=== PATIENT | female | born 1970 | race Caucasian/White ===

== ENCOUNTER 2016-10-21 11:23 | Emergency (ER) | payer OTHER ==
[~2016-10-21] VITALS: Ht 167.6 cm; Wt 77.1 kg
[~2016-10-21 11:23] MED LIST: ATIVAN0.5 M1 PO; ATIVAN1 M1 PO; AUGMENTIN 875875 MG PO; BACLOFEN10 M1 PO; BACLOFEN20 M1 PO; BACTRIM DS 8001 TAB PO; BACTRIM DS TAB1 EACH PO; BENADRYL ALLERG25 M1 PO; BENADRYL25 MG PO; BENTYL20 M1 PO; BENTYL20 MG PO; CARAFATE1 G1 PO; CIPRO 500MG TA500 MG PO; COMPAZINE10 M1 PO; DICYCLOMINE HCL20 M1 PO; DICYCLOMINE HYD20 MG PO; DILAUDID2 MG PO; DONNATAL TABS1 TAB PO; FAMOTIDINE20 MG PO; FLAG500 PO; FLEXERIL10 MG PO; HYDROXYZINE HCL25 M2 PO; HYDROXYZINE50 MG PO; IMITREX50 M1 PO; IMITREX50 MG PO; IMODIUM2 MG PO; KEFLEX500 MG PO; LEVSIN/SL0.125 MG PO; LEVSIN0.125 M1 PO; LEVSIN0.125 MG PO; METHADONE HCL10 M1 PO; METHOCARBAMOL500 MG PO; MOBIC15 MG PO; NAPROXEN500 MG PO; ONDANSETRON4 MG PO; OXYCODONE-ACET1 EACH PO; OXYCODONE5 M1 PO; PANTOPRAZOLE SO40 M1 PO; PEPCID40 MG PO; PERCOCET 325 MG1 TA2 PO; PERCOCET 5-3251 EACH PO; PROTONIX 40MG T40 MG PO; REGLAN10 M1 PO; REGLAN10 MG PO; TORADOL10 MG PO; TRAZODONE HCL50 M1 PO; TRAZODONE50 MG PO; VICODIN 300 MG-1 TAB PO; VICODIN 500 MG-1 TAB PO; XANAX1 MG PO; ZOFRAN ODT4 M1 PO; ZOFRAN4 M1 SL
[2016-10-21 11:30] VITALS: BP 120/75
--- NOTE | 2016-10-21 11:59 | ED HAND/WRIST INJURY COMPLAINT ---
History of Present Illness General Chief Complaint: Hand or Wrist Injury Stated Complaint: R WRIST INJURY MOVING BOXES Source: patient, old records Exam Limitations: no limitations Vital Signs & Intake/Output Vital Signs & Intake/Output Vital Signs Date Time Temp Pulse Resp B/P Pulse O2 O2 Flow FiO2 Ox Delivery Rate 10/21 1211 Room Air Room Air 10/21 1130 97.4 98 20 120/75 98 Room Air ED Intake and Output 10/22 0000 10/21 1200 Intake Total 0 Output Total Balance 0 Intake, Oral 0 Patient 170 lb Weight Allergies Coded Allergies: sodium hypochlorite solution (SODIUM HYPOCHLORITE) (Severe, RASH, BURNING ) NSAIDS (Non-Steroidal Anti-Inflamma (ABD PAIN 10/09/16) cyclobutyrol (PT REPORTS FROM LOWER BACK PAIN DOWN CONSTANT PAINFUL ACHE ) meloxicam (ABD PAIN 10/09/16) tramadol (Severe, VOMITING 10/09/16) ibuprofen (Mild, GI UPSET 10/09/16) Reconcile Medications Dicyclomine HCl 20 MG TABLET 1 TAB PO TID ABD PAIN (Reported) Ketorolac Tromethamine 10 MG TABLET 1 TAB PO Q6P PRN PAIN Ondansetron (Zofran Odt) 4 MG TAB.RAPDIS 1 TAB PO TID PRN NAUSEA Pantoprazole Sodium (Protonix) 40 MG TAB 1 TAB PO DAILY GERD Sumatriptan Succinate (Imitrex) 50 MG TAB 1 TAB PO AD PRN MIGRAINES (Reported ) Triage Note: PT STATES SHE WAS PACKING BOXES AND ONE OF THEM FELL ONTO RIGHT HAND INJURING IT. STATES IT HAPPENED LAST NIGHT Triage Nurses Notes Reviewed? yes Occurred: yesterday Duration: day(s): (2), constant Timing: recent history Injury Environment: home Severity: moderate Severity Numbers: 6 Pain/Injury Location: Right: Wrist. Context: blow Method of Injury: direct blow No Modifying Factors: none Associated Symptoms: none HPI: 46-year-old female presents to emergency room complaining of right wrist pain that radiates into her hand since last night. She states she was packing boxes on the box that was full of her dishes fell on her wrist causing it to stretch backwards. She states since then she's had constant aching pain worse with palpation and range of motion. She denies any other injury. She is right-hand dominant. Patient has a history of chronic right hand and wrist pain for which she has been seen by hand surgeon Dr. weiss and is scheduled to have surgery however states that he'll not do the surgery until she is in pain management. There is no other injury no forearm or elbow or shoulder pain (RAGINI DUPREE) Past History Travel History Traveled to [place] past 21 day No Medical History Any Pertinent Medical History? see below for history Neurological: NONE EENT: NONE Cardiovascular: NONE Respiratory: pneumonia, COLLAPSED LUNG Gastrointestinal: pancreatitis, peptic ulcer disease, upper GI bleed Hepatic: NONE Renal: UTI Musculoskeletal: fracture, TAILBONE AND THUMB FX Psychiatric: anxiety, insomnia Endocrine: NONE Blood Disorders: NONE Cancer(s): NONE SHAREHOLDER/Reproductive: NONE Surgical History Surgical History: tubal ligation, DUODENAL ULCER REPAIR (EX LAP) tonsillectomy, ovarian cystectomy Psychosocial History Who do you live with Mother Services at Home None What is your primary language Belarusian Tobacco Use: Current Daily Use Daily Tobacco Use Amount/Type: => 5 Cigarettes daily ETOH Use: occasional use Illicit Drug Use: denies illicit drug use Family History Hx Contributory? No (RAGINI DUPREE) Review of Systems Review of Systems Constitutional: Reports: see HPI. All Other Systems: Reviewed and Negative Comments Review of systems: See HPI, All other systems negative. Constitutional, no chills no fever, no malaise HEENT: No visual changes no sore throat no congestion, Cardiovascular: No chest pain , no palpitation Skin, no rashes, no change in skin Respiratory: No dyspnea no cough no sputum GI: No nausea no vomiting, : No dysuria Muscle skeletal: joint pain, no joint swelling, no back pain, no neck pain, Neurologic: No numbness n no headache Psych: No stress n Heme/endocrine: No bruising no bleeding Immunology: No lymphadenopathy (RAGINI DUPREE) Physical Exam Physical Exam General Appearance: well developed/nourished, no apparent distress, alert, awake Hand Left: normal inspection, normal range of motion Hand Right: normal inspection, normal range of motion Comments: Well-developed well-nourished patient in no apparent distress. HEENT: Atraumatic, extraocular motion intact Neck: Supple, FROM Back: FROM Cardiovascular: Regular rate and rhythms no murmurs Respiratory: No respiratory distress. Patient speaking in full complete sentences. Breath sounds clear to auscultation bilaterally: NO W/R/R Shoulder: Atraumatic/Stable. FROM . Elbow: Atraumatic/stable. FROM. No laxity Upper arm/Forearm: Atraumatic. Nontender. 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 Skin intact. FROM no scaphoid tenderness no obvious deformity no ecchymosis no swelling Pulses: Normal/equal radial pulses bilaterally. Brisk cap refill LOWER Extremities: full range of motion Neuro: Alert and oriented x3 Skin: Warm & dry;No appreciable rash on exposed skin Psych: Mood affect normal, normal memory normal judgment. (RAGINI DUPREE) Progress Differential Diagnosis: compartment syndrome, dislocation, fracture, sprain Plan of Care: Current Medications Sig/Annemarie Start time Last Medication Dose Stop Time Status Admin Ketorolac 30 MG ONCE ONE 10/21 1230 UNVr Tromethamine 10/21 1231 (Toradol) X-ray was ordered from triage I discussed the patient her x-ray results. The patient is been seen numerous times in the past for various pain ailments including similar symptoms today requesting her chronic pain medication. She has multiple allergies to over-the- counter pain medication I discussed with her that I cannot write her any narcotic she is requesting a shot of Toradol. Discussed with her that this was listed as an allergy which she states she has taken before without any problem. Gregorio wrap was applied to the right wrist by me advised to follow up with her hand specialist return anytime sooner with any concerns (RAGINI DUPREE) Diagnostic Imaging: Viewed by Me: Radiology Read. Discussed w/RAD: Radiology Read. Radiology Impression: PATIENT: VANDANA ZABALA PRESENT AGE: 46 PATIENT ACCOUNT NO: [id number] : 68 LOCATION: [facility] ORDERING PHYSICIAN: RAGINI MOLINA SERVICE DATE: 10/21/16 EXAM TYPE: RAD - XRY-WRIST COMPLETE-RIGHT EXAMINATION: XR WRIST, RIGHT CLINICAL INFORMATION : Pain after trauma. Evaluate for fracture. COMPARISON: None. TECHNIQUE: Right wrist, 3 views FINDINGS: There is osteoarthritis of the first carpometacarpal joint as manifest by nonuniform joint space loss, subarticular sclerosis, subarticular cystic change and osteophyte formation. There is a 0.3 cm ossicle at the lateral aspect of the degenerated joint. There is no evidence of acute carpal bone fracture or carpal subluxation. The radiocarpal and midcarpal joint spaces are well-preserved. No focal soft tissue swelling. IMPRESSION: 1. No acute fracture or malalignment at the right wrist. 2. [id number] osteoarthritis of the first carpometacarpal joint. DICTATED BY: MICHAELLE WHITMORE MD DATE/TIME DICTATED:10/21/161206 FURNITURE REFINISHER:LACHELLE DATE/TIME TRANSCRIBED:10/21/161206 CONFIDENTIAL, DO NOT COPY WITHOUT APPROPRIATE AUTHORIZATION. <Electronically signed in Other Vendor System> SIGNED BY: MICHAELLE WHITMORE MD 10/21/16 1213 (RAGINI DUPREE) Departure Departure Time of Disposition: 1223 Disposition: HOME OR SELF CARE Condition: Stable Clinical Impression Primary Impression: Wrist sprain Referrals: AMADOU ANGULO (PCP/Family) Additional Instructions: follow up iwth your hand surgeon and pain management dr mistry. toradol as needed for pain. This was sent to [facility]. gregorio as discussed. Departure Forms: Customer Survey General Discharge Information Prescriptions: Current Visit Scripts Ketorolac Tromethamine 1 TAB PO Q6P PRN PAIN #20 TAB (RAGINI DUPREE) PA/PHOTOGRAPHIC TECHNICIAN Co-Sign Statement Statement: ED Attending supervision documentation- [] I saw and evaluated the patient. I have also reviewed all the pertinent lab results and diagnostic results. I agree with the findings and the plan of care as documented in the PA's/PHOTOGRAPHIC TECHNICIAN's documentation. [X] I have reviewed the ED Record and agree with the PA's/PHOTOGRAPHIC TECHNICIAN's documentation. [] Additions or exceptions (if any) to the PAs/PHOTOGRAPHIC TECHNICIAN's note and plan are summarized below: [] (ALAN CUEVAS,JOSUÉ)
--- NOTE | 2016-10-21 12:13 | RADIOLOGY REPORT ---
EXAMINATION: XR WRIST, RIGHT CLINICAL INFORMATION: Pain after trauma. Evaluate for fracture. COMPARISON: None. TECHNIQUE: Right wrist, 3 views FINDINGS: There is osteoarthritis of the first carpometacarpal joint as manifest by nonuniform joint space loss, subarticular sclerosis, subarticular cystic change and osteophyte formation. There is a 0.3 cm ossicle at the lateral aspect of the degenerated joint. There is no evidence of acute carpal bone fracture or carpal subluxation. The radiocarpal and midcarpal joint spaces are well-preserved. No focal soft tissue swelling. IMPRESSION: 1. No acute fracture or malalignment at the right wrist. 2. [id number]-[id number] osteoarthritis of the first carpometacarpal joint.
[2016-10-21] MEDS ORDERED: KETOROLAC TROME10 M1 PO (12:27)
== END 2016-10-21 12:55 ==
LOC: ERH 11:23
DX: S63.501A Unspecified sprain of right wrist, initial encounter (principal); W20.8XXA Other cause of strike by thrown, projected or falling object, initial encounter
CPT/HCPCS: 73110-RT; 96372; J1885

== ENCOUNTER 2016-11-05 15:06 | Emergency (ER) | payer OTHER ==
[~2016-11-05] VITALS: Ht 167.6 cm; Wt 74.8 kg
[~2016-11-05 15:06] MED LIST changes: +KETOROLAC TROME10 M1 PO
[2016-11-05 15:54] LABS: ABSOLUTE BASOPHIL COUNT 0 /CUMM (0.0-0.2); ABSOLUTE EOSINOPHIL COUNT 0.2 /CUMM (0.0-0.7); ABSOLUTE GRANULOCYTE CT 4.6 /CUMM (1.4-6.5); ABSOLUTE LYMPH COUNT 3.1 /CUMM (1.2-3.4); ABSOLUTE MONOCYTE COUNT 0.4 /CUMM (0.10-0.60); BASOPHIL % 0.4 % (0.0-2.0); EOSINOPHIL % 2.3 % (0-5); GRANULOCYTE % 55.4 % (42.2-75.2); HEMATOCRIT 43.3 % (37-47); MEAN CORPUSCULAR HGB 32.4 PG (27.0-31.0); MEAN CORPUSCULAR HGB CONC 34.5 G/DL (33.0-37.0); MEAN CORPUSCULAR VOLUME 93.8 FL (81.0-99.0); MEAN PLATELET VOLUME 7.9 FL (7.4-10.4); PLATELET COUNT 294 /CUMM (130-400); RBC DISTRIBUTION WIDTH 15.3 % (11.5-14.5); RED BLOOD CELL CT 4.61 /CUMM (4.20-5.40); WHITE BLOOD CELL COUNT 8.4 /CUMM (4.8-10.8)
--- NOTE | 2016-11-05 17:52 | ED GI/GU/ABDOMINAL COMPLAINT ---
History of Present Illness General Chief Complaint: Abdominal Pain/Flank Pain Stated Complaint: ABD PAIN X3 DAYS Source: patient Exam Limitations: no limitations Vital Signs & Intake/Output Vital Signs & Intake/Output Vital Signs Date Time Temp Pulse Resp B/P Pulse O2 O2 Flow FiO2 Ox Delivery Rate 11/05 2020 98.4 104 18 151/77 98 Room Air 11/05 1908 98.1 96 20 109/66 98 Room Air 11/05 1708 97.4 93 18 139/79 100 Room Air 11/05 1517 97.0 99 18 121/85 100 Room Air Allergies Coded Allergies: sodium hypochlorite solution (SODIUM HYPOCHLORITE) (Severe, RASH, BURNING ) Iodinated Contrast Media - Oral and (Intermediate, PRURITIS 11/05/16) ITCHING, REDNESS/FLUSHING, TACHYCARDIA AND NAUSEA 11/05/16 NSAIDS (Non-Steroidal Anti-Inflamma (ABD PAIN 10/09/16) cyclobutyrol (PT REPORTS FROM LOWER BACK PAIN DOWN CONSTANT PAINFUL ACHE ) meloxicam (ABD PAIN 10/09/16) tramadol (Severe, VOMITING 10/09/16) ibuprofen (Mild, GI UPSET 10/09/16) Reconcile Medications Dicyclomine HCl 20 MG TABLET 1 TAB PO TID ABD PAIN (Reported) Ketorolac Tromethamine 10 MG TABLET 1 TAB PO Q6P PRN PAIN Ondansetron (Zofran Odt) 4 MG TAB.RAPDIS 1 TAB PO TID PRN NAUSEA Oxycodone HCl/Acetaminophen (Percocet 5-325 MG Tablet) 5 MG-325 MG TABLET 1-2 TAB PO Q6P PRN pain Pantoprazole Sodium (Protonix) 40 MG TAB 1 TAB PO DAILY GERD Sumatriptan Succinate (Imitrex) 50 MG TAB 1 TAB PO AD PRN MIGRAINES (Reported ) Triage Note: 46 Y/O FEMALE C/O DIFFUSE ABDOMINAL PAIN SINCE WEDNESDAY MORNING; STATES SHE WOKE WITH PAIN AND HAS BEEN CONSTANT SINCE ONSET DESPITE TAKING PRESCRIBED MEDS (ZOFRAN, CARAFATE AND BENTYL). PT CALLED HER GI DOCTOR AND STATES HAS APPT FOR WEDNESDAY. C/O N/V/D. AFEBRILE. Triage Nurses Notes Reviewed? yes ? N Is pt currently ? No Onset: Abrupt Duration: day(s): (3), constant, continues in ED Timing: recent history Quality/Severity: sharpness Location: generalized abdomen Radiation: no radiation Activities at Onset: none No Modifying Factors: none HPI: 46-year-old female comes into emergency room with complaints of generalized abdominal pain has been going on for the past 3 days. History of previous ulcer. Denies any fever chills vomiting. Denies any back pain chest pain. Patient reports that she's had surgery on her ulcer previously. Patient reports that she had blood in her stool 3 days ago but denies any blood currently. (GILMER MONTANEZ) Past History Travel History Traveled to [place] past 21 day No Medical History Any Pertinent Medical History? 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 No (GILMER MONTANEZ) Review of Systems Review of Systems Constitutional: Reports: no symptoms. EENTM: Reports: no symptoms. Respiratory: Reports: no symptoms. Cardiovascular: Reports: no symptoms. GI: Reports: see HPI. Genitourinary: Reports: no symptoms. Musculoskeletal: Reports: no symptoms. Skin: Reports: no symptoms. Neurological/Psychological: Reports: no symptoms. Hematologic/Endocrine: Reports: no symptoms. Immunologic/Allergic: Reports: no symptoms. All Other Systems: Reviewed and Negative (GILMER MONTANEZ) Physical Exam Physical Exam General Appearance: well developed/nourished, alert, awake Head: atraumatic, normal appearance Eyes: Bilateral: normal appearance, EOMI. Ears, Nose, Throat, Mouth: hearing grossly normal, moist mucous membrane Neck: normal inspection Respiratory: normal breath sounds, no respiratory distress Cardiovascular: regular rate/rhythm Gastrointestinal: normal bowel sounds, soft Rectal: heme negative stool, brown stool Back: normal inspection Extremities: normal range of motion Neurologic/Psych: awake, alert, oriented x 3, normal gait, normal mood/affect Skin: intact, normal color Core Measures ACS in differential dx? No Severe Sepsis Present: No Septic Shock Present: No (GILMER MONTANEZ) Progress Differential Diagnosis: AMI, appendicitis, biliary colic, bowel obstruction, diverticulitis, endometritis, esophageal varices, gastritis, hepatitis, ischemic bowel, inflamm bowel dis, intrauterine , kidney stone, ovarian cyst, ovarian torsion, pancreatitis, PID/cervicitis, peptic ulcer, PUD/GERD, SBO, threatened AB, UTI/pyelo Plan of Care: Orders Procedure Date/time Status LACTIC ACID 11/05 1820 Complete URINALYSIS 11/05 1520 Complete LIPASE 11/05 1520 Complete LACTIC ACID 11/05 1520 Complete COMPREHENSIVE METABOLIC PANEL 11/05 1520 Complete CBC WITHOUT DIFFERENTIAL 11/05 1520 Complete AMYLASE 11/05 1520 Complete Laboratory Tests 11/05/16 1745: Lactic Acid 2.1 11/05/16 1711: Urine Color YEL, Urine Clarity CLEAR, Urine pH 7.0, Ur Specific Reddick <= 1.005 , Urine Protein NEG, Urine Ketones NEG, Urine Nitrite NEG, Urine Bilirubin NEG, Urine Urobilinogen 0.2, Ur Leukocyte Esterase NEG, Ur Microscopic EXAM NOT REQUIRED, Urine Hemoglobin NEG, Urine Glucose NEG 11/05/16 1547: Anion Gap 12, Estimated GFR > 60, BUN/Creatinine Ratio 12.5, Glucose 77, Lactic Acid 1.5, Calcium 9.9, Total Bilirubin 0.5, AST 15, ALT 24, Alkaline Phosphatase 94, Total Protein 7.4, Albumin 4.5, Globulin 2.9, Albumin/Globulin Ratio 1.6, Amylase 57, Lipase 34, CBC w Diff NO MAN DIFF REQ, RBC 4.61, MCV 93.8, MCH 32.4 H, RDW 15.3 H, MPV 7.9, Gran % 55.4, Lymphocytes % 37.1, Monocytes % 4.8, Eosinophils % 2.3, Basophils % 0.4, Absolute Granulocytes 4.6, Absolute Lymphocytes 3.1, Absolute Monocytes 0.4, Absolute Eosinophils 0.2, Absolute Basophils 0, PUBS MCHC 34.5 Diagnostic Imaging: Viewed by Me: CT Scan. Discussed w/RAD: CT Scan. Radiology Impression: EXAM TYPE: CAT - CT ABD & PELVIS W IV CONTRAST EXAMINATION : CT ABDOMEN AND PELVIS WITH CONTRAST CLINICAL INFORMATION: Abdominal pain. History of ulcer COMPARISON: 09/26/2016 and earlier TECHNIQUE: Multidetector volumetric imaging was performed from the lung bases through the pubic symphysis following the uneventful administration of: Oral contrast: No Intravenous contrast: 95 cc Optiray 320 Sagittal and coronal reformatted images were obtained on the technologist workstation. FINDINGS: LUNG BASES: The visualized lung bases are unremarkable. LIVER, GALLBLADDER, AND BILIARY TREE: The liver is normal in size, shape, and attenuation. No focal hepatic lesion or biliary ductal dilatation is present. The gallbladder is unremarkable with no evidence of radiopaque gallstones, gallbladder wall thickening, or obvious pericholecystic inflammatory changes. PANCREAS: Normal; no mass or surrounding fluid. SPLEEN: Unchanged nonspecific low density in the splenic hilum. No other focal liver lesion seen. ADRENAL GLANDS: Normal; no mass. KIDNEYS AND URETERS: The kidneys are normal in size, shape, and attenuation. No hydronephrosis, hydroureter, or calculi. GASTROINTESTINAL TRACT: Stomach and small bowel are nondilated. There is fatty deposition within the wall of the right colon, transverse colon, and to a lesser degree the left colon which can be seen as chronic sequelae of inflammation. No acute pathologic colonic wall thickening or pericolonic inflammatory changes seen. No evidence of colitis or diverticulitis. Normal appendix. Surgical clips are seen adjacent the stomach. ABDOMINAL WALL: Several midline periumbilical hernias are seen, superior and inferior to the umbilicus, in the midline, containing only fat. LYMPHOVASCULAR STRUCTURES: Normal caliber abdominal aorta. Mild calcified atherosclerotic changes. No lymphadenopathy. BLADDER: No focal mass or wall thickening seen. No bladder calculi. PELVIC VISCERA: Uterus normal. No adnexal mass. OSSEOUS STRUCTURES: No acute or suspicious osseous abnormality. There is transitional lumbosacral anatomy with a pseudoarthrosis on the right. IMPRESSION: No acute CT findings to explain the patient's abdominal pain. DICTATED BY: USMAN VALENTINE MD DATE/TIME DICTATED:11/05/161833 TAKE UP SUPERVISOR:LACHELLE DATE/TIME TRANSCRIBED:1833 CONFIDENTIAL, DO NOT COPY WITHOUT APPROPRIATE AUTHORIZATION. Initial ED EKG: none Comments: 11/05/2016 10:20:15 PM Nontoxic-appearing. In no apparent distress. Patient feels better after pain medications. No evidence of perforated ulcer. Patient is to follow-up with her GI doctor. Return to emergency room immediately if any other concerns worsening symptoms. Patient understands and agrees with plan of care. (GILMER MONTANEZ) Departure Departure Disposition: HOME OR SELF CARE Condition: Stable Clinical Impression Primary Impression: Abdominal pain Secondary Impressions: Allergic reaction Referrals: PATIENT HAS NO PRIMARY CARE DR (PCP/Family) Additional Instructions: Take Percocet as prescribed. Follow-up with your GI doctor. Return to the emergency room immediately if any other concerns worsening symptoms. Please go over all results of today's visit with your primary care doctor. Contact your primary care doctor to let them know you were here in the emergency room. There may be nonspecific findings which may not be related to your visit today here in the emergency room but may require further evaluation and chronic monitoring by your primary care doctor. If you had a laceration today the chance of foreign body always remains. You should follow-up with your primary care doctor for recheck in 3-5 days for a wound check. If you had an x-ray done there is a chance that a fracture could have been missed on initial read and you should follow-up with your primary care doctor for repeat x-rays if symptoms persist. If your blood pressure was elevated here in the emergency room please have rechecked by her primary care doctor within the next 48 hours by your primary care doctor. If you were prescribed a narcotic here in the emergency room or any type of controlled substances you're not allowed to drive while taking this medication or operate any type of heavy machinery. Narcotics can make you feel lightheaded dizziness nausea and can cause constipation. You may need to waste picker a stool softener. Thank you for choosing [facility] emergency room. Please return to the emergency room immediately if you have any other concerns worsening of symptoms. Departure Forms: Customer Survey General Discharge Information Prescriptions: Current Visit Scripts Oxycodone HCl/Acetaminophen (Percocet 5-325 MG Tablet) 1-2 TAB PO Q6P PRN pain #10 TAB (GILMER MONTANEZ) PA/APPAREL FASHION DESIGNER Co-Sign Statement Statement: ED Attending supervision documentation- [] I saw and evaluated the patient. I have also reviewed all the pertinent lab results and diagnostic results. I agree with the findings and the plan of care as documented in the PA's/APPAREL FASHION DESIGNER's documentation. x I have reviewed the ED Record and agree with the PA's/APPAREL FASHION DESIGNER's documentation. [] Additions or exceptions (if any) to the PAs/APPAREL FASHION DESIGNER's note and plan are summarized below: [] (DIAMOND CUEVAS,WILL)
--- NOTE | 2016-11-05 18:45 | CT SCAN REPORT ---
EXAMINATION: CT ABDOMEN AND PELVIS WITH CONTRAST CLINICAL INFORMATION: Abdominal pain. History of ulcer COMPARISON: 09/26/2016 and earlier TECHNIQUE: Multidetector volumetric imaging was performed from the lung bases through the pubic symphysis following the uneventful administration of: Oral contrast: No Intravenous contrast: 95 cc Optiray 320 Sagittal and coronal reformatted images were obtained on the technologist workstation. FINDINGS: LUNG BASES: The visualized lung bases are unremarkable. LIVER, GALLBLADDER, AND BILIARY TREE: The liver is normal in size, shape, and attenuation. No focal hepatic lesion or biliary ductal dilatation is present. The gallbladder is unremarkable with no evidence of radiopaque gallstones, gallbladder wall thickening, or obvious pericholecystic inflammatory changes. PANCREAS: Normal; no mass or surrounding fluid. SPLEEN: Unchanged nonspecific low density in the splenic hilum. No other focal liver lesion seen. ADRENAL GLANDS: Normal; no mass. KIDNEYS AND URETERS: The kidneys are normal in size, shape, and attenuation. No hydronephrosis, hydroureter, or calculi. GASTROINTESTINAL TRACT: Stomach and small bowel are nondilated. There is fatty deposition within the wall of the right colon, transverse colon, and to a lesser degree the left colon which can be seen as chronic sequelae of inflammation. No acute pathologic colonic wall thickening or pericolonic inflammatory changes seen. No evidence of colitis or diverticulitis. Normal appendix. Surgical clips are seen adjacent the stomach. ABDOMINAL WALL: Several midline periumbilical hernias are seen, superior and inferior to the umbilicus, in the midline, containing only fat. LYMPHOVASCULAR STRUCTURES: Normal caliber abdominal aorta. Mild calcified atherosclerotic changes. No lymphadenopathy. BLADDER: No focal mass or wall thickening seen. No bladder calculi. PELVIC VISCERA: Uterus normal. No adnexal mass. OSSEOUS STRUCTURES: No acute or suspicious osseous abnormality. There is transitional lumbosacral anatomy with a pseudoarthrosis on the right. IMPRESSION: No acute CT findings to explain the patient's abdominal pain.
[2016-11-05 20:21] VITALS: BP 151/77
[2016-11-05] MEDS ORDERED: PERCOCET 5-3251 EACH PO ×2 (20:25→21:22)
== END 2016-11-05 20:24 ==
LOC: ERH 15:06
PROVIDERS: Emergency Medicine
DX: R10.84 Generalized abdominal pain (principal); T78.40XA Allergy, unspecified, initial encounter; X58.XXXA Exposure to other specified factors, initial encounter
CPT/HCPCS: 74177; 81003; 96374; 96375; 96376; J2405

== ENCOUNTER 2016-11-18 16:10 | Emergency (ER) | payer OTHER ==
[~2016-11-18] VITALS: Ht 167.6 cm; Wt 73.5 kg
[2016-11-18 16:24] VITALS: BP 144/86
[2016-11-18 16:45] LABS: ABSOLUTE BASOPHIL COUNT 0 /CUMM (0.0-0.2); ABSOLUTE EOSINOPHIL COUNT 0.2 /CUMM (0.0-0.7); ABSOLUTE GRANULOCYTE CT 4.6 /CUMM (1.4-6.5); ABSOLUTE LYMPH COUNT 3.4 /CUMM (1.2-3.4); ABSOLUTE MONOCYTE COUNT 0.5 /CUMM (0.10-0.60); BASOPHIL % 0.3 % (0.0-2.0); EOSINOPHIL % 2.7 % (0-5); GRANULOCYTE % 52.3 % (42.2-75.2); HEMATOCRIT 42.3 % (37-47); MEAN CORPUSCULAR HGB 32.2 PG (27.0-31.0); MEAN CORPUSCULAR HGB CONC 34.2 G/DL (33.0-37.0); MEAN CORPUSCULAR VOLUME 94.2 FL (81.0-99.0); MEAN PLATELET VOLUME 7.4 FL (7.4-10.4); PLATELET COUNT 345 /CUMM (130-400); RBC DISTRIBUTION WIDTH 15.7 % (11.5-14.5); RED BLOOD CELL CT 4.49 /CUMM (4.20-5.40); WHITE BLOOD CELL COUNT 8.8 /CUMM (4.8-10.8)
--- NOTE | 2016-11-18 17:26 | ED GI/GU/ABDOMINAL COMPLAINT ---
History of Present Illness General Chief Complaint: Abdominal Pain/Flank Pain Stated Complaint: ABD PAIN Source: patient, old records Exam Limitations: no limitations Vital Signs & Intake/Output Vital Signs & Intake/Output Vital Signs Date Time Temp Pulse Resp B/P Pulse O2 O2 Flow FiO2 Ox Delivery Rate 11/18 1624 97.5 98 20 144/86 98 Room Air Room Air Allergies Coded Allergies: sodium hypochlorite solution (SODIUM HYPOCHLORITE) (Severe, RASH, BURNING ) Iodinated Contrast Media - Oral and (Intermediate, PRURITIS 11/05/16) ITCHING, REDNESS/FLUSHING, TACHYCARDIA AND NAUSEA 11/05/16 NSAIDS (Non-Steroidal Anti-Inflamma (ABD PAIN 10/09/16) cyclobutyrol (PT REPORTS FROM LOWER BACK PAIN DOWN CONSTANT PAINFUL ACHE ) meloxicam (ABD PAIN 10/09/16) tramadol (Severe, VOMITING 10/09/16) ibuprofen (Mild, GI UPSET 10/09/16) Triage Note: PT TO ED WITH C/O LEFT ABD PAIN RADIATING TO MID ABD AREA. +N/D DENIES VOMITING. "I HAVE ZOFRAN ODT AT HOME". DENIES URINARY BURNING/PAIN. Triage Nurses Notes Reviewed? yes ? n Is pt currently ? No Onset: Gradual Duration: worse persistent since (2 DAYS) Timing: recent history Quality/Severity: sharpness, stabbing Severity Numbers: 7 Location: left lower quadrant, right lower quadrant Radiation: no radiation Activities at Onset: none Prior Abdominal Problems: similar symptoms Past Sexual History: Unobtainable at this time No Modifying Factors: none Modifying Factors: Improves With: rest. Worsens With: movement, palpation. HPI: Patient is a 46-year-old female presenting to the emergency Department chief complaint of lower abdominal pain that's been going on intermittently over the past several weeks. She reports that she was seen and evaluated here for similar symptoms 2 weeks ago and they did blood work and a CAT scan. She followed up with herenterologist, Dr. Morales. He increased her Pepcid dosing. Patient reports that over the past 2 days the pain has flared up. She just took her last BENTYL tablets prior to arrival. Positive nausea but no vomiting. She takes Zofran daily for her acid reflux. Denies any chest pain palpitations or shortness of breath. She reports 2 episodes of loose watery diarrhea. No vomiting. Denies any weakness. No fevers or chills. No recent travel. Denies recent antibiotic use. (JESSY CATHERINE) Reconcile Medications Dicyclomine HCl 20 MG TABLET 1 TAB PO TID ABD PAIN (Reported) Dicyclomine Hydrochloride (Bentyl) 10 MG CAPSULE 1 CAP PO TID PRN ABDOMINAL SPASMS Ketorolac Tromethamine 10 MG TABLET 1 TAB PO Q6P PRN PAIN Mag Hydrox/Al Hydrox/Simeth (Maalox Advanced Suspension) 200 MG-200 MG-20 MG/5 ML ORAL.SUSP 10 ML PO BID ABDOMINAL DISCOMFROT Ondansetron (Zofran Odt) 4 MG TAB.RAPDIS 1 TAB PO TID PRN NAUSEA Oxycodone HCl/Acetaminophen (Percocet 5-325 MG Tablet) 5 MG-325 MG TABLET 1-2 TAB PO Q6P PRN pain Pantoprazole Sodium (Protonix) 40 MG TAB 1 TAB PO DAILY GERD Sumatriptan Succinate (Imitrex) 50 MG TAB 1 TAB PO AD PRN MIGRAINES (Reported ) (ALAN CUEVAS,JOSUÉ) Past History Travel History Traveled to [place] past 21 day No Medical History Any Pertinent Medical History? 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 No (JESSY CATHERINE) Review of Systems Review of Systems Constitutional: Reports: no symptoms. Comments Review of systems: See HPI, All other systems negative. Constitutional, no chills fever or weight loss HEENT: No visual changes no sore throat no congestion Cardiovascular: No chest pain Skin, no jaundice no rashes Respiratory: No dyspnea cough sputum or hemoptysis GI:no vomiting : No dysuria No hematuria Muscle skeletal: no back pain, no neck pain, Neurologic: No numbness no confusion Psych: No increased stress anxiety or depression,. Heme/endocrine: No bruising no bleeding no polyuria or polydipsia Immunology: No splenectomy or history of AIDS (JESSY CATHERINE) Physical Exam Physical Exam General Appearance: well developed/nourished, no apparent distress, alert, awake , comfortable Gastrointestinal: normal bowel sounds, soft, tenderness Comments: Well-developed well-nourished person in no acute distress HEENT: Pupils equally round and reactive to light and accommodation. Nose is atraumatic. Neck: Normal inspection Back: Nontender, no CVA tenderness. Cardiovascular: Regular rate and rhythms no murmurs rubs or gallops, normal JVP Respiratory: Chest nontender. No respiratory distress.breath sounds clear to auscultation bilaterally Abdomen: Soft, diffuse tenderness to palpation, no rebound or guarding, nondistended, no appreciable organomegaly. Normal bowel sounds. No ascites Extremity: No edema Neuro: Alert oriented x3 Skin: No appreciable rash on exposed skin, skin is warm and dry. Psych: Mood and affect is normal, memory and judgment is normal. Core Measures ACS in differential dx? No Severe Sepsis Present: No Septic Shock Present: No (JESSY CATHERINE) Progress Differential Diagnosis: UTI/pyelo, CHRONIC ABDOMINAL PAIN, APPENDICITIS, GASTRITIS, DIVERTICULITIS, IRRITABLE BOWEL SYNDROME Plan of Care: Orders Procedure Date/time Status URINALYSIS 11/18 162 Complete LIPASE 11/18 162 Complete COMPREHENSIVE METABOLIC PANEL 11/18 162 Complete CBC WITHOUT DIFFERENTIAL 11/18 162 Complete AMYLASE 11/18 1627 Complete Laboratory Tests 11/18/16 1709: Urine Color STRAW, Urine Clarity CLEAR, Urine pH 6.0, Ur Specific [place] <= 1.005, Urine Protein NEG, Urine Ketones NEG, Urine Nitrite NEG, Urine Bilirubin NEG, Urine Urobilinogen 0.2, Ur Leukocyte Esterase NEG, Ur Microscopic EXAM NOT REQUIRED, Urine Hemoglobin NEG, Urine Glucose NEG 11/18/16 1630: Anion Gap 14, Estimated GFR > 60, BUN/Creatinine Ratio 21.7, Glucose 141 H, Calcium 9.3, Total Bilirubin 0.4, AST 19, ALT 18, Alkaline Phosphatase 93, Total Protein 7.5, Albumin 4.4, Globulin 3.1, Albumin/Globulin Ratio 1.4, Amylase 73, Lipase 76, CBC w Diff NO MAN DIFF REQ, RBC 4.49, MCV 94.2, MCH 32.2 H, RDW 15.7 H, MPV 7.4, Gran % 52.3, Lymphocytes % 39.3, Monocytes % 5.4, Eosinophils % 2.7 , Basophils % 0.3, Absolute Granulocytes 4.6, Absolute Lymphocytes 3.4, Absolute Monocytes 0.5, Absolute Eosinophils 0.2, Absolute Basophils 0, PUBS MCHC 34.2 Initial ED EKG: none Comments: Patient informed of all of her results. Patient had CT scan that was -2 weeks ago. No indication for CT scan at this time. Patient's vitals are stable. No elevation of white blood count at home. Electrolytes within normal range. Patient feeling slightly improved after by mouth Percocet. Patient will be discharged home with Bentyl and Maalox. She'll follow up with her GI doctor. (JESSY CATHERINE) Departure Departure Time of Disposition: 1736 Disposition: HOME OR SELF CARE Condition: Stable Clinical Impression Primary Impression: Abdominal pain Qualifiers: Abdominal location: generalized Qualified Code: R10.84 - Generalized abdominal pain Referrals: PATIENT HAS NO PRIMARY CARE DR (PCP/Family) BETH MORALES MD Additional Instructions: Follow-up with your director community organization call TO MAKE appointment. Increase fluids. Take Bentyl as prescribed. Return for worsening symptoms or concerns. Departure Forms: Customer Survey D/C INS-APPENDICITIS EXCLUSION General Discharge Information Prescriptions: Current Visit Scripts Dicyclomine Hydrochloride (Bentyl) 1 CAP PO TID PRN ABDOMINAL SPASMS #20 CAP Mag Hydrox/Al Hydrox/Simeth (Maalox Advanced Suspension) 10 ML PO BID #200 ML (JESSY CATHERINE) PA/STRADDLE BUGGY OPERATOR Co-Sign Statement Statement: ED Attending supervision documentation- [] I saw and evaluated the patient. I have also reviewed all the pertinent lab results and diagnostic results. I agree with the findings and the plan of care as documented in the PA's/STRADDLE BUGGY OPERATOR's documentation. [X] I have reviewed the ED Record and agree with the PA's/STRADDLE BUGGY OPERATOR's documentation. [] Additions or exceptions (if any) to the PAs/STRADDLE BUGGY OPERATOR's note and plan are summarized below: [] (ALAN CUEVAS,JOSUÉ)
[2016-11-18] MEDS ORDERED: MAALOX ADVANCE355 M2 PO (17:54)
[2016-11-18] MEDS ORDERED: BENTYL10 M1 PO (17:54)
== END 2016-11-18 17:30 ==
LOC: ERH 16:10
PROVIDERS: Emergency Medicine
DX: R10.32 Left lower quadrant pain (principal); R10.31 Right lower quadrant pain
CPT/HCPCS: 81003

== ENCOUNTER 2016-11-25 14:39 | Emergency (ER) | payer OTHER ==
[~2016-11-25] VITALS: Ht 165.1 cm; Wt 73.9 kg
[~2016-11-25 14:39] MED LIST changes: +BENTYL10 M1 PO; +MAALOX ADVANCE355 M2 PO
--- NOTE | 2016-11-25 16:23 | ED MVC/FALL/TRAUMA COMPLAINT ---
History of Present Illness General Chief Complaint: Fall Stated Complaint: FALL Vital Signs & Intake/Output Vital Signs & Intake/Output Vital Signs Date Time Temp Pulse Resp B/P Pulse O2 O2 Flow FiO2 Ox Delivery Rate 11/25 1444 97.7 82 16 113/82 98 Room Air Allergies Coded Allergies: sodium hypochlorite solution (SODIUM HYPOCHLORITE) (Severe, RASH, BURNING ) Iodinated Contrast Media - Oral and (Intermediate, PRURITIS 11/05/16) ITCHING, REDNESS/FLUSHING, TACHYCARDIA AND NAUSEA 11/05/16 NSAIDS (Non-Steroidal Anti-Inflamma (ABD PAIN 10/09/16) cyclobutyrol (PT REPORTS FROM LOWER BACK PAIN DOWN CONSTANT PAINFUL ACHE ) meloxicam (ABD PAIN 10/09/16) tramadol (Severe, VOMITING 10/09/16) ibuprofen (Mild, GI UPSET 10/09/16) Reconcile Medications Dicyclomine HCl 20 MG TABLET 1 TAB PO TID ABD PAIN (Reported) Dicyclomine Hydrochloride (Bentyl) 10 MG CAPSULE 1 CAP PO TID PRN ABDOMINAL SPASMS Ketorolac Tromethamine 10 MG TABLET 1 TAB PO Q6P PRN PAIN Mag Hydrox/Al Hydrox/Simeth (Maalox Advanced Suspension) 200 MG-200 MG-20 MG/5 ML ORAL.SUSP 10 ML PO BID ABDOMINAL DISCOMFROT Ondansetron (Zofran Odt) 4 MG TAB.RAPDIS 1 TAB PO TID PRN NAUSEA Oxycodone HCl/Acetaminophen (Percocet 5-325 MG Tablet) 5 MG-325 MG TABLET 1-2 TAB PO Q6P PRN pain Pantoprazole Sodium (Protonix) 40 MG TAB 1 TAB PO DAILY GERD Sumatriptan Succinate (Imitrex) 50 MG TAB 1 TAB PO AD PRN MIGRAINES (Reported ) Triage Note: PT STATES SHE HAS BEEN HAVING LOWER ABD PAIN AND FELL A FEW DAYS AGO. PT REPORTS THAT SHE IS HAVING BLOOD IN HER STOOL SINCE THIS AM. 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 Surgical History Surgical History: tubal ligation, DUODENAL ULCER REPAIR (EX LAP) tonsillectomy, ovarian cystectomy Psychosocial History Who do you live with Mother Services at Home None What is your primary language Nepali Tobacco Use: Current Daily Use Daily Tobacco Use Amount/Type: => 5 Cigarettes daily ETOH Use: occasional use Illicit Drug Use: denies illicit drug use Progress Plan of Care: Orders Procedure Date/time Status LACTIC ACID 11/25 1931 Active URINE DRUGS OF ABUSE 11/25 1631 Active URINALYSIS 11/25 1631 Active PARTIAL THROMBOPLASTIN TIME 11/25 1631 Active PROTHROMBIN TIME 11/25 1631 Active LIPASE 11/25 1631 Active LACTIC ACID 11/25 1631 Active COMPREHENSIVE METABOLIC PANEL 11/25 1631 Active CBC WITHOUT DIFFERENTIAL 11/25 1631 Active TYPE & SCREEN (NOT X-MATCH) 11/25 1631 Active Current Medications Sig/Annemarie Start time Last Medication Dose Stop Time Status Admin Acetaminophen 1,000 MG ONCE ONE 11/25 1645 UNVr (Ofirmev) 11/25 1659 N/A 1 UNIT (No Carrier) Departure Departure Condition: Stable Referrals: PATIENT HAS NO PRIMARY CARE DR (PCP/Family) Departure Forms: Customer Survey General Discharge Information
--- NOTE | 2016-11-25 16:34 | ED GI/GU/ABDOMINAL COMPLAINT ---
History of Present Illness General Chief Complaint: Abdominal Pain/Flank Pain Stated Complaint: FALL Source: patient, old records Exam Limitations: no limitations Vital Signs & Intake/Output Vital Signs & Intake/Output Vital Signs Date Time Temp Pulse Resp B/P Pulse O2 O2 Flow FiO2 Ox Delivery Rate 11/25 1746 97.0 91 18 128/68 98 Room Air 11/25 1743 Room Air 11/25 1646 97.7 11/25 1444 97.7 82 16 113/82 98 Room Air Allergies Coded Allergies: sodium hypochlorite solution (SODIUM HYPOCHLORITE) (Severe, RASH, BURNING ) Iodinated Contrast Media - Oral and (Intermediate, PRURITIS 11/05/16) ITCHING, REDNESS/FLUSHING, TACHYCARDIA AND NAUSEA 11/05/16 NSAIDS (Non-Steroidal Anti-Inflamma (ABD PAIN 10/09/16) cyclobutyrol (PT REPORTS FROM LOWER BACK PAIN DOWN CONSTANT PAINFUL ACHE ) meloxicam (ABD PAIN 10/09/16) tramadol (Severe, VOMITING 10/09/16) ibuprofen (Mild, GI UPSET 10/09/16) Reconcile Medications Dicyclomine HCl 20 MG TABLET 1 TAB PO TID ABD PAIN (Reported) Dicyclomine Hydrochloride (Bentyl) 10 MG CAPSULE 1 CAP PO TID PRN ABDOMINAL SPASMS Dicyclomine Hydrochloride (Bentyl) 10 MG CAPSULE 1-2 CAP PO TID PRN ABDOMINAL SPASMS Hyoscyamine Sulfate (Levsin-Sl) 0.125 MG TAB.SUBL 1-2 TAB SL Q4P PRN abd pain diarrhea Ketorolac Tromethamine 10 MG TABLET 1 TAB PO Q6P PRN PAIN Mag Hydrox/Al Hydrox/Simeth (Maalox Advanced Suspension) 200 MG-200 MG-20 MG/5 ML ORAL.SUSP 10 ML PO BID ABDOMINAL DISCOMFROT Ondansetron (Zofran Odt) 4 MG TAB.RAPDIS 1 TAB PO TID PRN NAUSEA Oxycodone HCl/Acetaminophen (Percocet 5-325 MG Tablet) 5 MG-325 MG TABLET 1-2 TAB PO Q6P PRN pain Pantoprazole Sodium 40 MG TABLET.DR 1 TAB PO DAILY GERD (Reported) Pantoprazole Sodium (Protonix) 40 MG TAB 1 TAB PO DAILY GERD Promethazine HCl 25 MG TABLET 1 TAB PO Q6P PRN nausea vomiting Sucralfate 1 GRAM TABLET 1 TAB PO 4 TIMES/DAY STOMACH (Reported) Sumatriptan Succinate (Imitrex) 50 MG TAB 1 TAB PO AD PRN MIGRAINES (Reported ) Triage Note: PT STATES SHE HAS BEEN HAVING LOWER ABD PAIN AND FELL A FEW DAYS AGO. PT REPORTS THAT SHE IS HAVING BLOOD IN HER STOOL SINCE THIS AM. PT STATES SHE DID HIT HER HEAD WHEN SHE FELL BUT STATES -LOC Triage Nurses Notes Reviewed? yes ? N Is pt currently ? No Onset: Gradual Duration: week(s): (3-4) Location: left flank Radiation: back Activities at Onset: none Associated Symptoms: abdominal pain, ALSO LEFT HIP PAIN AFTER FALL HPI: This is a 46-year-old female who presents to the ER with chief complaint of lower abdominal pain radiating down to her right flank for the past 3-4 weeks. Pain is associated with some rectal bleeding. She states that she has a history of bleeding ulcers and got very concerned. She also fell down a few days ago down some stairs secondary to an obstructing cement slab was put there by her lab work. She states the pain in her left leg is mild to moderate in intensity worse with range of motion. Along with Dr. Morales in the office regarding her blood in her stool but there is no bleeding at that time. She of cough. Perforated ulcer with surgical repair. Past History Travel History Traveled to [place] past 21 day No Medical History Any Pertinent Medical History? 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 No Review of Systems Review of Systems Constitutional: Denies: chills, fever. EENTM: Reports: no symptoms. Respiratory: Denies: cough, short of breath, sputum production. Cardiovascular: Denies: chest pain, orthopena. GI: Reports: abdominal pain. Denies: diarrhea, nausea, vomiting. Genitourinary: Reports: no symptoms. Musculoskeletal: Reports: back pain, joint pain, muscle pain. Skin: Reports: no symptoms. Neurological/Psychological: Reports: no symptoms. Hematologic/Endocrine: Denies: bruising, bleeding, polyuria, polydipsia. Immunologic/Allergic: Denies: splenectomy. All Other Systems: Reviewed and Negative Physical Exam Physical Exam General Appearance: well developed/nourished, alert, awake Head: atraumatic, normal appearance Eyes: Bilateral: normal appearance, PERRL, EOMI. Ears, Nose, Throat, Mouth: hearing grossly normal, dental injury Neck: normal inspection, supple, full range of motion Respiratory: normal breath sounds, chest non-tender, no respiratory distress Cardiovascular: regular rate/rhythm Peripheral Pulses: 2+ radial (R), 2+ radial (L) Gastrointestinal: soft, tenderness (LEFT FLANK) Rectal: GUIAC NEGATIVE Back: CVA tenderness (L) Extremities: normal range of motion, PAIN WITH RANGE OF MOTION LEFT HIP Neurologic/Psych: no motor/sensory deficits, awake, alert, oriented x 3 Skin: intact, normal color, warm/dry Core Measures ACS in differential dx? No Severe Sepsis Present: No Septic Shock Present: No Progress Differential Diagnosis: diverticulitis, kidney stone, UTI/pyelo, LEFT HIP STRAIN , LEFT HIP FRACTURE, PELVIC FRACTURE Plan of Care: Orders Procedure Date/time Status LACTIC ACID 11/25 1931 Active URINE DRUGS OF ABUSE 11/25 1631 Active URINALYSIS 11/25 1631 Complete PARTIAL THROMBOPLASTIN TIME 11/25 1631 Complete PROTHROMBIN TIME 11/25 1631 Complete LIPASE 11/25 1631 Complete LACTIC ACID 11/25 1631 Complete COMPREHENSIVE METABOLIC PANEL 11/25 1631 Complete CBC WITHOUT DIFFERENTIAL 11/25 1631 Complete TYPE & SCREEN (NOT X-MATCH) 11/25 1631 Complete Laboratory Tests 11/25/16 1855: Methadone Screen Pending, Barbiturate Screen Pending, Ur Phencyclidine Scrn Pending, Amphetamines Screen Pending, U Benzodiazepines Scrn Pending, Urine Cocaine Screen Pending, Urine Cannabis Screen Pending, Urine Color YEL, Urine Clarity CLEAR, Urine pH 6.0, Ur Specific [place] 1.010, Urine Protein NEG, Urine Ketones NEG, Urine Nitrite NEG, Urine Bilirubin NEG, Urine Urobilinogen 0.2, Ur Leukocyte Esterase NEG, Ur Microscopic EXAM NOT REQUIRED, Urine Hemoglobin NEG, Urine Glucose NEG 11/25/16 1652: Anion Gap 11, Estimated GFR > 60, BUN/Creatinine Ratio 21.7, Glucose 87, Lactic Acid 1.3, Calcium 9.0, Total Bilirubin 0.5, AST 17, ALT 27, Alkaline Phosphatase 112, Total Protein 7.2, Albumin 4.3, Globulin 2.9, Albumin/Globulin Ratio 1.5, Lipase 143, PT 10.4, INR 0.99, APTT 25, CBC w Diff NO MAN DIFF REQ, RBC 4.35, MCV 94.8, MCH 32.1 H, RDW 15.6 H, MPV 7.5, Gran % 53.0, Lymphocytes % 39.2, Monocytes % 5.0, Eosinophils % 2.5, Basophils % 0.3, Absolute Granulocytes 5.2, Absolute Lymphocytes 3.9 H, Absolute Monocytes 0.5, Absolute Eosinophils 0.2, Absolute Basophils 0, PUBS MCHC 33.9 IV Tylenol IV fluids ordered. Check labs and CT scan of abdomen. She denies any Tylenol. Morphine ordered. 11/25/2016 5:59:[address] scan for any acute issues pathology. Patient requesting repeat dose pain medication. I instructed her that there is no pathology to treat her for this time. X-ray ordered to rule out fracture. Patient is upset that she has to go to a prison tonight as she is being admitted from her mother's building. (ALAN CUEVAS,JOSUÉ) Diagnostic Imaging: Viewed by Me: Radiology Read, CT Scan. Discussed w/RAD: Radiology Read, CT Scan. Radiology Impression: PATIENT: VANDANA ZABALA PRESENT AGE: 46 PATIENT ACCOUNT NO: [id number] : 68 LOCATION: [facility] ORDERING PHYSICIAN: JOSUÉ PHILLIPS MD SERVICE DATE: 11/25/16-1657 EXAM TYPE: CAT - CT ABD & PELVIS W/O IV CONTRAS EXAMINATION: CT ABDOMEN AND PELVIS WITHOUT CONTRAST CLINICAL INFORMATION: Left lower quadrant pain radiating to the back. Blood in stool. COMPARISON: CT abdomen pelvis 11/05/2016 TECHNIQUE: Multidetector volumetric imaging was performed from the superior aspect of the liver through the pubic symphysis. Sagittal and coronal reformatted images were obtained on the technologist's workstation. No oral or intravenous contrast. DLP : 585.06 mGy-cm FINDINGS: LUNG BASES: The visualized lung bases are unremarkable. LIVER, GALLBLADDER, AND BILIARY TREE: The liver is normal in size, shape, and attenuation. No focal hepatic lesion or biliary ductal dilatation is present. The gallbladder is unremarkable with no evidence of radiopaque gallstones, gallbladder wall thickening, or obvious pericholecystic inflammatory changes. PANCREAS: Unremarkable. SPLEEN: Unremarkable. ADRENAL GLANDS: Unremarkable. KIDNEYS AND URETERS: The kidneys are normal in size, shape, and attenuation. No hydronephrosis, hydroureter, or calculi seen. No perinephric stranding. BLADDER: Unremarkable. GASTROINTESTINAL TRACT: Surgical clips in the upper central abdomen near the GE junction. The small and large bowel are unremarkable. The appendix is unremarkable. ABDOMINAL WALL: Midline periumbilical hernia containing fat only again noted. LYMPH NODES: Normal. VASCULAR: Atherosclerotic vascular wall calcifications of aorta and iliac vessels without aneurysm. PELVIC VISCERA: Uterus is retroverted. No adnexal abnormality. OSSEOUS STRUCTURES: Partial transitional vertebrae. The right transverse process articulates with the sacrum. No acute osseous abnormality. IMPRESSION: No acute abnormality CT scan abdomen and pelvis. DICTATED BY: BHAVANA HE MD DATE/TIME DICTATED:11/25/161715 SUPPLEMENTAL MANAGER:LACHELLE DATE/ TIME TRANSCRIBED:11/25/161715 CONFIDENTIAL, DO NOT COPY WITHOUT APPROPRIATE AUTHORIZATION. <Electronically signed in Other Vendor System> SIGNED BY: BHAVANA HE MD 11/25/161739, PATIENT: VANDANA ZABALA PRESENT AGE: 46 PATIENT ACCOUNT NO: [id number] : 66 LOCATION: [facility] ORDERING PHYSICIAN: JOSUÉ PHILLIPS MD SERVICE DATE: 11/25/16 EXAM TYPE: RAD - XRY-AP PELVIS; XRY-HIP 2-3 VIEWS, LEFT EXAMINATIONS: PELVIS 1 VIEW AND LEFT HIP 2 VIEWS CLINICAL INFORMATION: Pelvic and left hip pain after fall. COMPARISON: None. TECHNIQUE: A supine view of the pelvis is provided. AP neutral and frog-leg lateral views of the left hip are provided. FINDINGS: There are no fractures. Both femoral heads are seated within well-formed acetabula. No dysplastic changes are identified. The visualized bowel gas pattern is unremarkable. IMPRESSION: Unremarkable pelvic and left hip radiographs. DICTATED BY: KATIUSKA BOWSER MD DATE/TIME DICTATED:11/25/161839 SUPPLEMENTAL MANAGER: LACHELLE DATE/TIME TRANSCRIBED:11/25/161839 CONFIDENTIAL, DO NOT COPY WITHOUT APPROPRIATE AUTHORIZATION. <Electronically signed in Other Vendor System> SIGNED BY: KATIUSKA BOWSER MD 11/25/161845 Initial ED EKG: none Departure Departure Time of Disposition: 1912 Disposition: HOME OR SELF CARE Condition: Stable Clinical Impression Primary Impression: Abdominal pain Referrals: BETH MORALES MD Additional Instructions: Follow up with Dr. Morales in the office. Return if worse. Departure Forms: Customer Survey General Discharge Information
[2016-11-25 17:04] LABS: ABSOLUTE BASOPHIL COUNT 0 /CUMM (0.0-0.2); ABSOLUTE EOSINOPHIL COUNT 0.2 /CUMM (0.0-0.7); ABSOLUTE GRANULOCYTE CT 5.2 /CUMM (1.4-6.5); ABSOLUTE MONOCYTE COUNT 0.5 /CUMM (0.10-0.60); BASOPHIL % 0.3 % (0.0-2.0); EOSINOPHIL % 2.5 % (0-5); HEMATOCRIT 41.2 % (37-47); MEAN CORPUSCULAR HGB 32.1 PG (27.0-31.0); MEAN CORPUSCULAR HGB CONC 33.9 G/DL (33.0-37.0); MEAN CORPUSCULAR VOLUME 94.8 FL (81.0-99.0); MEAN PLATELET VOLUME 7.5 FL (7.4-10.4); PLATELET COUNT 291 /CUMM (130-400); RBC DISTRIBUTION WIDTH 15.6 % (11.5-14.5); RED BLOOD CELL CT 4.35 /CUMM (4.20-5.40); WHITE BLOOD CELL COUNT 9.8 /CUMM (4.8-10.8)
[2016-11-25 17:06] LABS: ABSOLUTE LYMPH COUNT 3.9 /CUMM (1.2-3.4)
[2016-11-25 17:12] LABS: PT 10.4 SEC (9.4-12.5); PTT 25 SEC (25-37)
--- NOTE | 2016-11-25 17:40 | CT SCAN REPORT ---
EXAMINATION: CT ABDOMEN AND PELVIS WITHOUT CONTRAST CLINICAL INFORMATION: Left lower quadrant pain radiating to the back. Blood in stool. COMPARISON: CT abdomen pelvis 11/05/2016 TECHNIQUE: Multidetector volumetric imaging was performed from the superior aspect of the liver through the pubic symphysis. Sagittal and coronal reformatted images were obtained on the technologist's workstation. No oral or intravenous contrast. DLP: 585.06 mGy-cm FINDINGS: LUNG BASES: The visualized lung bases are unremarkable. LIVER, GALLBLADDER, AND BILIARY TREE: The liver is normal in size, shape, and attenuation. No focal hepatic lesion or biliary ductal dilatation is present. The gallbladder is unremarkable with no evidence of radiopaque gallstones, gallbladder wall thickening, or obvious pericholecystic inflammatory changes. PANCREAS: Unremarkable. SPLEEN: Unremarkable. ADRENAL GLANDS: Unremarkable. KIDNEYS AND URETERS: The kidneys are normal in size, shape, and attenuation. No hydronephrosis, hydroureter, or calculi seen. No perinephric stranding. BLADDER: Unremarkable. GASTROINTESTINAL TRACT: Surgical clips in the upper central abdomen near the GE junction. The small and large bowel are unremarkable. The appendix is unremarkable. ABDOMINAL WALL: Midline periumbilical hernia containing fat only again noted. LYMPH NODES: Normal. VASCULAR: Atherosclerotic vascular wall calcifications of aorta and iliac vessels without aneurysm. PELVIC VISCERA: Uterus is retroverted. No adnexal abnormality. OSSEOUS STRUCTURES: Partial transitional vertebrae. The right transverse process articulates with the sacrum. No acute osseous abnormality. IMPRESSION: No acute abnormality CT scan abdomen and pelvis.
--- NOTE | 2016-11-25 18:46 | RADIOLOGY REPORT ---
EXAMINATIONS: PELVIS 1 VIEW AND LEFT HIP 2 VIEWS CLINICAL INFORMATION: Pelvic and left hip pain after fall. COMPARISON: None. TECHNIQUE: A supine view of the pelvis is provided. AP neutral and frog-leg lateral views of the left hip are provided. FINDINGS: There are no fractures. Both femoral heads are seated within well-formed acetabula. No dysplastic changes are identified. The visualized bowel gas pattern is unremarkable. IMPRESSION: Unremarkable pelvic and left hip radiographs.
[2016-11-25 19:19] VITALS: BP 136/91
== END 2016-11-25 19:42 ==
LOC: ERH 14:39
PROVIDERS: Emergency Medicine
DX: R10.9 Unspecified abdominal pain (principal); K62.5 Hemorrhage of anus and rectum; M79.605 Pain in left leg
CPT/HCPCS: 72170; 73502-LT; 74176; 80307; 81003; 96361; 96374; 96375; J0131

== ENCOUNTER 2016-11-27 05:36 | Emergency (ER) | payer OTHER ==
[~2016-11-27] VITALS: Ht 167.6 cm; Wt 73.9 kg
[2016-11-27 05:47] VITALS: BP 147/66
[2016-11-27] MEDS ORDERED: PANTOPRAZOLE SO40 M1 PO (05:51)
[2016-11-27] MEDS ORDERED: SUCRALFATE1 G1 PO (05:51)
--- NOTE | 2016-11-27 06:27 | ED GI/GU/ABDOMINAL COMPLAINT ---
History of Present Illness General Chief Complaint: Abdominal Pain/Flank Pain Stated Complaint: BIBA ABD PAIN Source: patient, old records, EMS Exam Limitations: no limitations Vital Signs & Intake/Output Vital Signs & Intake/Output Vital Signs Date Time Temp Pulse Resp B/P Pulse O2 O2 Flow FiO2 Ox Delivery Rate 11/27 0547 96.2 78 16 147/66 99 Room Air Room Air Allergies Coded Allergies: sodium hypochlorite solution (SODIUM HYPOCHLORITE) (Severe, RASH, BURNING ) Iodinated Contrast Media - Oral and (Intermediate, PRURITIS 11/05/16) ITCHING, REDNESS/FLUSHING, TACHYCARDIA AND NAUSEA 11/05/16 NSAIDS (Non-Steroidal Anti-Inflamma (ABD PAIN 10/09/16) cyclobutyrol (PT REPORTS FROM LOWER BACK PAIN DOWN CONSTANT PAINFUL ACHE ) meloxicam (ABD PAIN 10/09/16) tramadol (Severe, VOMITING 10/09/16) ibuprofen (Mild, GI UPSET 10/09/16) Reconcile Medications Dicyclomine HCl 20 MG TABLET 1 TAB PO TID ABD PAIN (Reported) Dicyclomine Hydrochloride (Bentyl) 10 MG CAPSULE 1 CAP PO TID PRN ABDOMINAL SPASMS Hyoscyamine Sulfate (Levsin-Sl) 0.125 MG TAB.SUBL 1-2 TAB SL Q4P PRN abd pain diarrhea Ketorolac Tromethamine 10 MG TABLET 1 TAB PO Q6P PRN PAIN Mag Hydrox/Al Hydrox/Simeth (Maalox Advanced Suspension) 200 MG-200 MG-20 MG/5 ML ORAL.SUSP 10 ML PO BID ABDOMINAL DISCOMFROT Ondansetron (Zofran Odt) 4 MG TAB.RAPDIS 1 TAB PO TID PRN NAUSEA Oxycodone HCl/Acetaminophen (Percocet 5-325 MG Tablet) 5 MG-325 MG TABLET 1-2 TAB PO Q6P PRN pain Pantoprazole Sodium 40 MG TABLET.DR 1 TAB PO DAILY GERD (Reported) Pantoprazole Sodium (Protonix) 40 MG TAB 1 TAB PO DAILY GERD Sucralfate 1 GRAM TABLET 1 TAB PO 4 TIMES/DAY STOMACH (Reported) Sumatriptan Succinate (Imitrex) 50 MG TAB 1 TAB PO AD PRN MIGRAINES (Reported ) Triage Note: 46YO FEMALE TO RM 2 VIA AMB FROM HOME W/CO ABD PAIN, VOMITING,DIARRHEA WITH BLOOD PRESENT ON PAPER AFTER WIPING FROM BM. DENIES BLOODY DIARRHEA. SEEN HERE WED FOR THE SAME. Triage Nurses Notes Reviewed? yes LMP (ages 10-50): post menopausal ? n Is pt currently ? No Onset: 5 days Duration: day(s):, constant, continues in ED Timing: recent history Quality/Severity: aching, cramping, moderate, vomiting Location: left lower quadrant, right lower quadrant Radiation: back Activities at Onset: none Prior Abdominal Problems: similar symptoms Past Sexual History: Unobtainable at this time Modifying Factors: Worsens With: eating. Associated Symptoms: abdominal pain, diarrhea, loss of appetite, nausea/vomiting HPI: 5 days prior to admission patient complains of recurrent lower abdominal pain described as moderate to severe twisting radiating to her back associated with nausea vomiting frequent loose watery stool. She was seen 2 days ago with similar symptoms with negative workup. She denies fever chills chest pain cough shortness of breath headache dysuria rash. Past History Travel History Traveled to [place] past 21 day Yes Medical History Any Pertinent Medical History? 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 No Review of Systems Review of Systems Constitutional: Reports: see HPI, malaise. EENTM: Reports: no symptoms. Respiratory: Reports: no symptoms. Cardiovascular: Reports: no symptoms. GI: Reports: see HPI, abdominal pain, diarrhea, nausea, vomiting. Genitourinary: Reports: no symptoms. Musculoskeletal: Reports: no symptoms. Skin: Reports: no symptoms. Neurological/Psychological: Reports: no symptoms. Hematologic/Endocrine: Reports: no symptoms. Immunologic/Allergic: Reports: no symptoms. All Other Systems: Reviewed and Negative Physical Exam Physical Exam General Appearance: well developed/nourished, alert, awake, anxious, mild distress, obese Head: atraumatic, normal appearance Eyes: Bilateral: normal appearance, PERRL, EOMI, normal inspection. Ears, Nose, Throat, Mouth: hearing grossly normal, moist mucous membrane Neck: normal inspection, supple, full range of motion, normal alignment Respiratory: normal breath sounds, chest non-tender, no respiratory distress, quiet respiration, lungs clear Cardiovascular: regular rate/rhythm, normal peripheral pulses, norml femoral pulses equa Peripheral Pulses: 4+ carotid (R), 4+ carotid (L) Gastrointestinal: normal bowel sounds, soft, non-tender, no organomegaly Rectal: normal inspection, heme negative stool Back: normal inspection, normal range of motion Extremities: normal range of motion, no ligament instability Neurologic/Psych: no motor/sensory deficits, awake, alert, oriented x 3, normal gait, normal mood/affect, healthcare administrative assistant II-XII nml as tested Skin: intact, normal color, warm/dry Core Measures ACS in differential dx? No Severe Sepsis Present: No Septic Shock Present: No Progress Differential Diagnosis: gastritis, inflamm bowel dis, PUD/GERD Plan of Care: Current Medications Sig/Annemarie Start time Last Medication Dose Stop Time Status Admin Promethazine HCl 25 MG ONCE ONE 11/27 629 UNVr (Phenergen) 11/27 630 Initial ED EKG: none Departure Departure Time of Disposition: 638 Disposition: HOME OR SELF CARE Condition: Stable Clinical Impression Primary Impression: Nausea, vomiting, and diarrhea Secondary Impressions: Chronic abdominal pain Referrals: BETH TRISTAN MD Departure Forms: General Discharge Information Prescriptions: Current Visit Scripts Hyoscyamine Sulfate (Levsin-Sl) 1-2 TAB SL Q4P PRN abd pain diarrhea #30 TAB Promethazine HCl 1 TAB PO Q6P PRN nausea vomiting #20 TAB
[2016-11-27] MEDS ORDERED: LEVSIN-SL0.125 MG SL (06:42)
[2016-11-27] MEDS ORDERED: PROMETHAZINE HC25 M3 PO (06:43)
[2016-11-27] MEDS ORDERED: BENTYL10 M1 PO (09:27)
== END 2016-11-27 07:01 ==
LOC: ERH 05:36
DX: R11.2 Nausea with vomiting, unspecified (principal); R19.7 Diarrhea, unspecified; G89.29 Other chronic pain; R10.31 Right lower quadrant pain; R10.32 Left lower quadrant pain
CPT/HCPCS: 96372; J2405; J2550

== ENCOUNTER 2016-11-27 08:11 | Emergency (ER) | payer OTHER ==
[~2016-11-27] VITALS: Ht 167.6 cm; Wt 73.9 kg
[~2016-11-27 08:11] MED LIST changes: +LEVSIN-SL0.125 MG SL; +PROMETHAZINE HC25 M3 PO; +SUCRALFATE1 G1 PO
[2016-11-27 08:21] VITALS: BP 122/87
--- NOTE | 2016-11-27 08:50 | ED GI/GU/ABDOMINAL COMPLAINT ---
History of Present Illness General Chief Complaint: Abdominal Pain/Flank Pain Stated Complaint: ABDOMINAL PAIN Source: patient Exam Limitations: no limitations Vital Signs & Intake/Output Vital Signs & Intake/Output Vital Signs Date Time Temp Pulse Resp B/P Pulse O2 O2 Flow FiO2 Ox Delivery Rate 11/27 0821 97.6 101 18 122/87 98 Room Air Allergies Coded Allergies: sodium hypochlorite solution (SODIUM HYPOCHLORITE) (Severe, RASH, BURNING ) Iodinated Contrast Media - Oral and (Intermediate, PRURITIS 11/05/16) ITCHING, REDNESS/FLUSHING, TACHYCARDIA AND NAUSEA 11/05/16 NSAIDS (Non-Steroidal Anti-Inflamma (ABD PAIN 10/09/16) cyclobutyrol (PT REPORTS FROM LOWER BACK PAIN DOWN CONSTANT PAINFUL ACHE ) meloxicam (ABD PAIN 10/09/16) tramadol (Severe, VOMITING 10/09/16) ibuprofen (Mild, GI UPSET 10/09/16) Triage Note: C/O LOWER ABDOMINAL AND BACK PAIN X 4 DAYS. WAS SEEN HERE LAST PM, DISCAHRGED AT 0645; STATES MEDS NOT HELPING (PROMETHAZINE AND PHENERGAN). HAD CT SCAN DONE ON 11/25. (NEGATIVE) Triage Nurses Notes Reviewed? yes ? N Is pt currently ? No HPI: This patient is a 46-year-old female with a past medical history including peptic ulcer disease and pneumonia who presented to the emergency department today for evaluation of abdominal pain and left flank pain. The patient was seen here on Wednesday and had a full abdominal workup. She had a CT scan of the abdomen and pelvis which was unremarkable. The patient was discharged from the emergency Department began approximately one hour prior to this current visit where she was discharged with Phenergan and promethazine. The patient reported, "medications are not working and I have twisting pain in my stomach." She reported that the pain comes and goes in waves and gets up to a 10 out of 10. It is sharp and starts in her left flank and radiates across her lower abdomen. The pain has been constant since Wednesday. She reported associated nausea, but no vomiting. The patient denies any diarrhea or constipation. She denied any fevers, chills, or difficulty breathing. The patient reported that she does have a GI specialist who she is going to see after she is discharged. (KELLEN SKY,JANA) Reconcile Medications Dicyclomine HCl 20 MG TABLET 1 TAB PO TID ABD PAIN (Reported) Dicyclomine Hydrochloride (Bentyl) 10 MG CAPSULE 1 CAP PO TID PRN ABDOMINAL SPASMS Dicyclomine Hydrochloride (Bentyl) 10 MG CAPSULE 1-2 CAP PO TID PRN ABDOMINAL SPASMS Hyoscyamine Sulfate (Levsin-Sl) 0.125 MG TAB.SUBL 1-2 TAB SL Q4P PRN abd pain diarrhea Ketorolac Tromethamine 10 MG TABLET 1 TAB PO Q6P PRN PAIN Mag Hydrox/Al Hydrox/Simeth (Maalox Advanced Suspension) 200 MG-200 MG-20 MG/5 ML ORAL.SUSP 10 ML PO BID ABDOMINAL DISCOMFROT Ondansetron (Zofran Odt) 4 MG TAB.RAPDIS 1 TAB PO TID PRN NAUSEA Oxycodone HCl/Acetaminophen (Percocet 5-325 MG Tablet) 5 MG-325 MG TABLET 1-2 TAB PO Q6P PRN pain Pantoprazole Sodium 40 MG TABLET.DR 1 TAB PO DAILY GERD (Reported) Pantoprazole Sodium (Protonix) 40 MG TAB 1 TAB PO DAILY GERD Promethazine HCl 25 MG TABLET 1 TAB PO Q6P PRN nausea vomiting Sucralfate 1 GRAM TABLET 1 TAB PO 4 TIMES/DAY STOMACH (Reported) Sumatriptan Succinate (Imitrex) 50 MG TAB 1 TAB PO AD PRN MIGRAINES (Reported ) (ALAN CUEVAS,JOSUÉ) Past History Travel History Traveled to [place] past 21 day No Medical History Any Pertinent Medical History? 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 No (JANA FOREMAN PA-C) Review of Systems Review of Systems Constitutional: Reports: no symptoms. EENTM: Reports: no symptoms. Respiratory: Reports: no symptoms. Cardiovascular: Reports: no symptoms. GI: Reports: see HPI. Genitourinary: Reports: no symptoms. Musculoskeletal: Reports: see HPI. Skin: Reports: no symptoms. Neurological/Psychological: Reports: no symptoms. All Other Systems: Reviewed and Negative (JANA FOREMAN PA-C) Physical Exam Physical Exam Gastrointestinal: normal bowel sounds, soft, no organomegaly, TENDER TO PALPATION IN THE LEFT LOWER QUADRANT WITH NO REBOUND OR GUARDING. nEGATIVE rOVSING SIGN. nEGATIVE [place] SIGN. nEGATIVE PSOAS SIGN. nO mCbURNEY'S POINT TENDERNESS. nO PERITONEAL SIGNS. Comments: Well-developed well-nourished person in no acute distress HEENT: Normal EENT exam, head normocephalic, moist mucous membranes PERRLA bilaterally. No pharyngeal injection. No oral pharyngeal lesions or edema Neck: Supple, no lymphadenopathy Back: Normal gait. Normal inspection. Left-sided lumbar paraspinal musculature tenderness. No CVA tenderness. No midline tenderness Cardiovascular: Regular rate and rhythm with no murmurs, rubs or gallops Respiratory: No respiratory distress. Speaking sentences Extremity: Normal and equal pulses Neuro: Alert oriented x3, cranial nerves II through XII grossly intact. Skin: No appreciable rash on exposed skin, skin is warm and dry. Psych: Mood and affect is normal Core Measures ACS in differential dx? Yes Severe Sepsis Present: No Septic Shock Present: No (JANA FOREMAN PA-C) Progress Differential Diagnosis: AAA, AMI, appendicitis, biliary colic, bowel obstruction , colon cancer, cholecystitis, diverticulitis, ectopic , endometritis, gastritis, hepatitis, ischemic bowel, inflamm bowel dis, intrauterine , kidney stone, ovarian cyst, ovarian torsion, pancreatitis, PID/cervicitis, peptic ulcer, PUD/GERD, perforated viscous, SBO, threatened AB, UTI/pyelo Plan of Care: Orders Procedure Date/time Status URINE 11/27 827 Complete URINALYSIS 11/27 827 Complete Laboratory Tests 11/27/16 0849: Urine Color YEL, Urine Clarity CLEAR, Urine pH 6.0, Ur Specific [place] 1.010, Urine Protein NEG, Urine Ketones NEG, Urine Nitrite NEG, Urine Bilirubin NEG, Urine Urobilinogen 0.2, Ur Leukocyte Esterase NEG, Ur Microscopic EXAM NOT REQUIRED, Urine Hemoglobin NEG, Urine Glucose NEG, Urine Test NEGATIVE 11/27/16 0828: CBC w Diff Cancelled, WBC Cancelled, RBC Cancelled, Hgb Cancelled, Hct Cancelled , MCV Cancelled, MCH Cancelled, RDW Cancelled, Plt Count Cancelled, MPV Cancelled, PUBS MCHC Cancelled, Serum Alcohol Cancelled Initial ED EKG: none Comments: 11/27/2016 9:27:25 AM: Upon reevaluation, the patient is resting comfortably on the stretcher, with her eyes closed, and in no acute distress. She has had no vomiting here in the emergency department. She reported that she is going to see her GI doctor, "right after she leaves here." Urinalysis unremarkable with no evidence of red blood cells in the urine to suggest kidney stones. Discussed this patient with Dr. Mohr who reported that she was the one who evaluated her on 11/25/2016. She reported it hurts CAT scan was unremarkable as well as the rest of her workup. This patient is stable for outpatient GI follow-up. (JANA FOREMAN PA-C) Departure Departure Disposition: HOME OR SELF CARE Condition: Stable Clinical Impression Primary Impression: Abdominal pain Qualifiers: Abdominal location: lower abdomen, unspecified Qualified Code: R10.30 - Lower abdominal pain, unspecified Referrals: PATIENT HAS NO PRIMARY CARE DR (PCP/Family) Additional Instructions: Take Bentyl as prescribed. Please scheduled appointment with your GI specialist as discussed. Rest and be sure to stay hydrated. Departure Forms: Customer Survey General Discharge Information Prescriptions: Current Visit Scripts Dicyclomine Hydrochloride (Bentyl) 1-2 CAP PO TID PRN ABDOMINAL SPASMS #15 CAP (JANA FOREMAN PA-C) PA/FARM EQUIPMENT ENGINEER Co-Sign Statement Statement: ED Attending supervision documentation- [] I saw and evaluated the patient. I have also reviewed all the pertinent lab results and diagnostic results. I agree with the findings and the plan of care as documented in the PA's/FARM EQUIPMENT ENGINEER's documentation. [X] I have reviewed the ED Record and agree with the PA's/FARM EQUIPMENT ENGINEER's documentation. [] Additions or exceptions (if any) to the PAs/FARM EQUIPMENT ENGINEER's note and plan are summarized below: [] (ALAN CUEVAS,JOSUÉ)
[2016-11-27] MEDS ORDERED: BENTYL10 M1 PO (09:27)
== END 2016-11-27 09:33 ==
LOC: ERH 08:11
DX: R10.32 Left lower quadrant pain (principal)
CPT/HCPCS: 81003; 81025; 87804; 87804-59; 96372; G0480; J0500; J1200

== ENCOUNTER 2016-11-27 23:47 | Emergency (ER) | payer OTHER ==
[~2016-11-27] VITALS: Ht 167.6 cm; Wt 72.6 kg
[2016-11-27 23:53] VITALS: BP 127/66
--- NOTE | 2016-11-27 23:58 | ED GI/GU/ABDOMINAL COMPLAINT ---
History of Present Illness General Chief Complaint: Abdominal Pain/Flank Pain Stated Complaint: BIBA C/O ABD PAIN SEEN MULTI X'S TODAY FOR SAME Source: patient Exam Limitations: no limitations Vital Signs & Intake/Output Vital Signs & Intake/Output Vital Signs Date Time Temp Pulse Resp B/P Pulse O2 O2 Flow FiO2 Ox Delivery Rate 11/27 2353 98.7 108 18 127/66 98 Room Air ED Intake and Output 11/28 0000 11/27 1200 Intake Total Output Total Balance Patient 160 lb Weight Allergies Coded Allergies: sodium hypochlorite solution (SODIUM HYPOCHLORITE) (Severe, RASH, BURNING ) Iodinated Contrast Media - Oral and (Intermediate, PRURITIS 11/05/16) ITCHING, REDNESS/FLUSHING, TACHYCARDIA AND NAUSEA 11/05/16 NSAIDS (Non-Steroidal Anti-Inflamma (ABD PAIN 10/09/16) cyclobutyrol (PT REPORTS FROM LOWER BACK PAIN DOWN CONSTANT PAINFUL ACHE ) meloxicam (ABD PAIN 10/09/16) tramadol (Severe, VOMITING 10/09/16) ibuprofen (Mild, GI UPSET 10/09/16) Reconcile Medications Dicyclomine HCl 20 MG TABLET 1 TAB PO TID ABD PAIN (Reported) Dicyclomine Hydrochloride (Bentyl) 10 MG CAPSULE 1 CAP PO TID PRN ABDOMINAL SPASMS Dicyclomine Hydrochloride (Bentyl) 10 MG CAPSULE 1-2 CAP PO TID PRN ABDOMINAL SPASMS Hyoscyamine Sulfate (Levsin-Sl) 0.125 MG TAB.SUBL 1-2 TAB SL Q4P PRN abd pain diarrhea Ketorolac Tromethamine 10 MG TABLET 1 TAB PO Q6P PRN PAIN Mag Hydrox/Al Hydrox/Simeth (Maalox Advanced Suspension) 200 MG-200 MG-20 MG/5 ML ORAL.SUSP 10 ML PO BID ABDOMINAL DISCOMFROT Ondansetron (Zofran Odt) 4 MG TAB.RAPDIS 1 TAB PO TID PRN NAUSEA Oxycodone HCl/Acetaminophen (Percocet 5-325 MG Tablet) 5 MG-325 MG TABLET 1-2 TAB PO Q6P PRN pain Pantoprazole Sodium 40 MG TABLET.DR 1 TAB PO DAILY GERD (Reported) Pantoprazole Sodium (Protonix) 40 MG TAB 1 TAB PO DAILY GERD Promethazine HCl 25 MG TABLET 1 TAB PO Q6P PRN nausea vomiting Sucralfate 1 GRAM TABLET 1 TAB PO 4 TIMES/DAY STOMACH (Reported) Sumatriptan Succinate (Imitrex) 50 MG TAB 1 TAB PO AD PRN MIGRAINES (Reported ) Triage Note: PT BIBA C/O ABD PAIN. PT WAS SEEN HERE TWICE YESTERDAY, COMPLAINING OF 10/10 LOWER ABDOMINAL PAIN THAT RADIATES TO BACK. Triage Nurses Notes Reviewed? yes ? n Is pt currently ? No Duration: week(s):, waxing and waning Timing: recent history Quality/Severity: cramping Location: left flank, left lower quadrant, left upper quadrant Radiation: no radiation Activities at Onset: none Prior Abdominal Problems: similar symptoms Modifying Factors: Worsens With: palpation. Associated Symptoms: abdominal pain, nausea/vomiting HPI: 46-year-old woman history of chronic abdominal pain and peptic ulcer disease presents with left sided abdominal tenderness for the past 3-4 weeks. She notes that it is similar to her prior episodes of abdominal pain. She was seen 2 days ago had a negative evaluation and a normal CAT scan. She was sent home. She returned early this morning. She had blood work that was also benign. She was sent home. She returns stating that the pain is returned on the left side. 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 She has no bleeding per rectum, fever, chills, dysuria, diarrhea. She is otherwise well Past History Travel History Traveled to [place] past 21 day No Medical History Any Pertinent Medical History? 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 No Review of Systems Review of Systems Constitutional: Reports: no symptoms. EENTM: Reports: no symptoms. Respiratory: Reports: no symptoms. Cardiovascular: Reports: no symptoms. GI: Reports: no symptoms. Genitourinary: Reports: no symptoms. Musculoskeletal: Reports: no symptoms. Skin: Reports: no symptoms. Neurological/Psychological: Reports: no symptoms. Hematologic/Endocrine: Reports: no symptoms. Immunologic/Allergic: Reports: no symptoms. All Other Systems: Reviewed and Negative Physical Exam Physical Exam General Appearance: well developed/nourished, mild distress Head: atraumatic, normal appearance Eyes: Bilateral: normal appearance. Ears, Nose, Throat, Mouth: dry mucosa Neck: normal inspection, supple, full range of motion Respiratory: normal breath sounds, chest non-tender, no respiratory distress, quiet respiration, lungs clear Cardiovascular: regular rate/rhythm Gastrointestinal: normal bowel sounds, soft, left sided abdominal wall tenderness, no rebound. no guarding. Back: normal inspection, normal range of motion Extremities: normal range of motion Neurologic/Psych: no motor/sensory deficits, awake, alert, oriented x 3 Skin: intact Core Measures ACS in differential dx? No Severe Sepsis Present: No Septic Shock Present: No Progress Differential Diagnosis: cholecystitis, diverticulitis, gastritis, hepatitis Plan of Care: Orders Procedure Date/time Status URINE DRUG SCREEN FOR ER ONLY 11/28 21 Complete URINALYSIS 11/28 21 Complete TROPONIN LEVEL 11/28 2016 Complete LIPASE 11/28 2016 Complete HEPATIC FUNCTION PANEL 11/28 2016 Complete ETHANOL 11/28 2016 Complete CBC WITHOUT DIFFERENTIAL 11/28 2016 Complete BASIC METABOLIC PANEL 11/28 2016 Complete AMYLASE 11/28 2016 Complete EKG 11/28 2016 Active Laboratory Tests 11/28/16 0148: Urine Opiates Screen 488.00, Methadone Screen 134, Barbiturate Screen < 60, Ur Phencyclidine Scrn 8.80, Amphetamines Screen < 100, U Benzodiazepines Scrn > 800 H, Urine Cocaine Screen < 50, Urine Cannabis Screen 79.70 H, Urine Color YEL, Urine Clarity CLEAR, Urine pH 6.0, Ur Specific Dewitt 1.025, Urine Protein NEG, Urine Ketones TRACE H, Urine Nitrite NEG, Urine Bilirubin NEG, Urine Urobilinogen 0.2, Ur Leukocyte Esterase NEG, Ur Microscopic EXAM NOT REQUIRED, Urine Hemoglobin NEG, Urine Glucose NEG 11/28/16 0021: Anion Gap 11, Estimated GFR > 60, BUN/Creatinine Ratio 22.9, Glucose 116 H, Calcium 9.0, Total Bilirubin 0.4, Direct Bilirubin 0.4, AST 23, ALT 19, Alkaline Phosphatase 88, Troponin I < 0.01, Total Protein 6.6, Albumin 4.0, Amylase 73, Lipase 99, CBC w Diff NO MAN DIFF REQ, RBC 4.09 L, MCV 94.2, MCH 32.7 H, RDW 14.9 H, MPV 7.9, Gran % 52.9, Lymphocytes % 39.2, Monocytes % 4.6, Eosinophils % 2.7, Basophils % 0.6, Absolute Granulocytes 4.7, Absolute Lymphocytes 3.5 H, Absolute Monocytes 0.4, Absolute Eosinophils 0.2, Absolute Basophils 0.1, PUBS MCHC 34.8, Serum Alcohol < 10.0 Diagnostic Imaging: Viewed by Me: CT Scan. Discussed w/RAD: CT Scan. Initial ED EKG: normal axis, normal intervals, normal p-waves, normal QRS complex, normal sinus rhythm Departure Departure Disposition: HOME OR SELF CARE Condition: Stable Clinical Impression Primary Impression: Abdominal pain Referrals: PATIENT HAS NO PRIMARY CARE DR (PCP/Family) Departure Forms: Customer Survey General Discharge Information Comments pt has had more than 22 abd/pelvic ct scans since 2011. Labs benign.... discussed at length with patient. She likely has irritable bowel syndrome vs chronic pain. She is safe and stable for discharge with close follow up with GI and PMD.
[2016-11-28 00:36] LABS: ABSOLUTE BASOPHIL COUNT 0.1 /CUMM (0.0-0.2); ABSOLUTE EOSINOPHIL COUNT 0.2 /CUMM (0.0-0.7); ABSOLUTE GRANULOCYTE CT 4.7 /CUMM (1.4-6.5); ABSOLUTE LYMPH COUNT 3.5 /CUMM (1.2-3.4); ABSOLUTE MONOCYTE COUNT 0.4 /CUMM (0.10-0.60); BASOPHIL % 0.6 % (0.0-2.0); EOSINOPHIL % 2.7 % (0-5); GRANULOCYTE % 52.9 % (42.2-75.2); HEMATOCRIT 38.5 % (37-47); MEAN CORPUSCULAR HGB 32.7 PG (27.0-31.0); MEAN CORPUSCULAR HGB CONC 34.8 G/DL (33.0-37.0); MEAN CORPUSCULAR VOLUME 94.2 FL (81.0-99.0); MEAN PLATELET VOLUME 7.9 FL (7.4-10.4); PLATELET COUNT 254 /CUMM (130-400); RBC DISTRIBUTION WIDTH 14.9 % (11.5-14.5); RED BLOOD CELL CT 4.09 /CUMM (4.20-5.40); WHITE BLOOD CELL COUNT 8.9 /CUMM (4.8-10.8)
== END 2016-11-28 03:43 ==
LOC: ERH 23:47
PROVIDERS: Pediatrics
DX: R10.32 Left lower quadrant pain (principal); R10.12 Left upper quadrant pain; R10.31 Right lower quadrant pain; R11.2 Nausea with vomiting, unspecified; R19.7 Diarrhea, unspecified; G89.29 Other chronic pain
CPT/HCPCS: 80307; 81003; 81025; 87804; 87804-59; 93005; 93010; 96372; 96374; 96375; G0480; J0500; J1200; J2405; J2550

== ENCOUNTER 2016-12-16 17:45 | Emergency (ER) | payer OTHER ==
[~2016-12-16] VITALS: Ht 167.6 cm; Wt 77.1 kg
[2016-12-16 17:47] VITALS: BP 161/67
--- NOTE | 2016-12-16 18:10 | ED GI/GU/ABDOMINAL COMPLAINT ---
History of Present Illness General Chief Complaint: Abdominal Pain/Flank Pain Stated Complaint: UPP ABD PAIN Source: patient, old records, EMS Exam Limitations: no limitations Vital Signs & Intake/Output Vital Signs & Intake/Output Vital Signs Date Time Temp Pulse Resp B/P Pulse O2 O2 Flow FiO2 Ox Delivery Rate 12/16 1747 97.9 100 22 161/67 98 Room Air Allergies Coded Allergies: sodium hypochlorite solution (SODIUM HYPOCHLORITE) (Severe, RASH, BURNING ) Iodinated Contrast Media - Oral and (Intermediate, PRURITIS 11/05/16) ITCHING, REDNESS/FLUSHING, TACHYCARDIA AND NAUSEA 11/05/16 NSAIDS (Non-Steroidal Anti-Inflamma (ABD PAIN 10/09/16) cyclobutyrol (PT REPORTS FROM LOWER BACK PAIN DOWN CONSTANT PAINFUL ACHE ) meloxicam (ABD PAIN 10/09/16) tramadol (Severe, VOMITING 10/09/16) ibuprofen (Mild, GI UPSET 10/09/16) Reconcile Medications Baclofen 20 MG TABLET 1 TAB PO TID PRN pain Dicyclomine HCl 20 MG TABLET 1 TAB PO TID ABD PAIN (Reported) Dicyclomine HCl 20 MG TABLET 1-2 TAB PO BID PRN pain Dicyclomine Hydrochloride (Bentyl) 10 MG CAPSULE 1 CAP PO TID PRN ABDOMINAL SPASMS Dicyclomine Hydrochloride (Bentyl) 10 MG CAPSULE 1-2 CAP PO TID PRN ABDOMINAL SPASMS Hyoscyamine (Levsin) 0.125 MG TABLET 1 TAB PO Q4 PRN pain Hyoscyamine Sulfate (Levsin-Sl) 0.125 MG TAB.SUBL 1-2 TAB SL Q4P PRN abd pain diarrhea Ketorolac Tromethamine 10 MG TABLET 1 TAB PO Q6P PRN PAIN Mag Hydrox/Al Hydrox/Simeth (Maalox Advanced Suspension) 200 MG-200 MG-20 MG/5 ML ORAL.SUSP 10 ML PO BID ABDOMINAL DISCOMFROT Ondansetron (Zofran Odt) 4 MG TAB.RAPDIS 1 TAB PO TID PRN NAUSEA Oxycodone HCl/Acetaminophen (Percocet 5-325 MG Tablet) 5 MG-325 MG TABLET 1-2 TAB PO Q6P PRN pain Pantoprazole Sodium 40 MG TABLET.DR 1 TAB PO DAILY GERD (Reported) Pantoprazole Sodium (Protonix) 40 MG TAB 1 TAB PO DAILY GERD Promethazine HCl 12.5 MG TABLET 1 TAB PO Q6-8 PRN nausea Promethazine HCl 25 MG TABLET 1 TAB PO Q6P PRN nausea vomiting Sucralfate 1 GRAM TABLET 1 TAB PO 4 TIMES/DAY STOMACH (Reported) Sumatriptan Succinate (Imitrex) 50 MG TAB 1 TAB PO AD PRN MIGRAINES (Reported ) Triage Note: 46 Y/F BIBA FROM HOME FOR ACUTE ONSET OF ABD PAIN RADIATING TO CHEST. PT STS HAS HX OF BLEEDING ULCERS. PT ARRIVES A/0 X4 AND NOTED WEEPING AND STS ABD PAIN IS 10/10. PT PLACED ON MONITOR AND LABS AND EKG IN PROGRESS. PT AWARITING PROVIDER EVAL Triage Nurses Notes Reviewed? yes ? N Is pt currently ? No Onset: Abrupt Duration: hour(s): (4), constant Timing: recent history Quality/Severity: aching, throbbing Severity Numbers: 10 Location: epigastric Radiation: chest Activities at Onset: none No Modifying Factors: none Associated Symptoms: DENIES HPI: 46-year-old female presents emergency room brought in by and was unknown to this ER complaining of sudden onset epigastric abdominal pain radiating into her chest for the past 4 hours after drinking water. She has taken Protonix and Levsin without improvement. Patient has been seen numerous times in the past for similar symptoms. She denies any pain with inspiration dizziness lightheadedness no nausea vomiting black or bloody stools. She denies any recent alcohol or drug use or no modifying factors or associated symptoms otherwise. The patient states the pain was so severe today that she could not "smoke her cigarettes" (YOLIE MOLINA,RAGINI) Past History Travel History Traveled to [place] past 21 day No Medical History Any Pertinent Medical History? 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 No (RAGINI DUPREE) Review of Systems Review of Systems Constitutional: Reports: see HPI. All Other Systems: Reviewed and Negative Comments Review of systems: See HPI, All other systems negative. Constitutional, no chills no fever, no malaise HEENT: No visual changes no sore throat no congestion, no ear pain Cardiovascular: No chest pain , no palpitation Skin, no rashes, no change in skin Respiratory: No dyspnea no cough no sputum GI: No nausea no vomiting, no diarrhea, no bloating/constipation : No dysuria Muscle skeletal: No joint pain, no joint swelling, no back pain Neurologic: No numbness, no headache Psych: No stress Heme/endocrine: No bruising no bleeding Immunology: No lymphadenopathy, (RAGINI DUPREE) Physical Exam Physical Exam General Appearance: well developed/nourished, no apparent distress, alert, awake Gastrointestinal: normal bowel sounds, soft, non-tender Comments: Well-developed well-nourished person in no acute distress HEENT: Normal EENT exam; PERRL, EOMI, HEAD is atraumatic. moist mucous membranes. Neck: Supple, normal range of motion Back: Nontender, no CVA tenderness. Full range of motion Cardiovascular: Regular rate and rhythms no murmurs rubs Respiratory: No respiratory distress. Patient speaking in full complete sentences. Breath sounds clear to auscultation bilaterally: NO W/R/R Abdomen: Soft, nontender nondistended, no appreciable organomegaly. Normal bowel sounds. No rebound/guarding, Extremity: No edema, full range of motion of extremities Neuro: Alert oriented x3, motor sensory normal, There were no obvious focal neurologic abnormalities. Skin: No appreciable rash on exposed skin, skin is warm and dry. Psych: Mood and affect is normal, memory and judgment is normal. Core Measures ACS in differential dx? Yes Severe Sepsis Present: No Septic Shock Present: No (RAGINI DURPEE) Progress Differential Diagnosis: AAA, AMI, appendicitis, biliary colic, bowel obstruction , colon cancer, cholecystitis, diverticulitis, ectopic , esophageal varices, gastritis, hepatitis, hernia, ischemic bowel, inflamm bowel dis, intrauterine , kidney stone, Charmaine-Sandip tear, ovarian cyst, ovarian torsion, pancreatitis, PID/cervicitis, peptic ulcer, PUD/GERD, perforated viscous, SBO, threatened AB, UTI/pyelo Plan of Care: Orders Procedure Date/time Status Add-on Test (ER Only) 12/16 182 Active TROPONIN LEVEL 12/17 1803 Complete LIPASE 12/16 180 Complete HUMAN BETA HCG SCREEN 12/16 1800 Complete COMPREHENSIVE METABOLIC PANEL 12/16 1800 Complete CBC WITHOUT DIFFERENTIAL 12/16 1800 Complete AMYLASE 12/16 1800 Complete EKG 12/16 175 Active Laboratory Tests 12/16/16 180: Anion Gap 14, Estimated GFR > 60, BUN/Creatinine Ratio 14.3, Glucose 94, Calcium 9.7, Total Bilirubin 0.4, AST 19, ALT 25, Alkaline Phosphatase 80, Troponin I < 0.01, Total Protein 7.0, Albumin 4.3, Globulin 2.7, Albumin/Globulin Ratio 1.6, Amylase 76, Lipase 83, Total Beta HCG NEGATIVE, CBC w Diff NO MAN DIFF REQ, RBC 4.13 L, MCV 95.9, MCH 32.7 H, RDW 15.1 H, MPV 7.6, Gran % 50.1, Lymphocytes % 39.1, Monocytes % 6.9, Eosinophils % 3.6, Basophils % 0.3, Absolute Granulocytes 4.4, Absolute Lymphocytes 3.4, Absolute Monocytes 0.6, Absolute Eosinophils 0.3, Absolute Basophils 0, PUBS MCHC 34.1 Labs ordered old records reviewed patient medicated protoniX Pepcid IV fluids Ativan 2 mg IV Patient has been seen numerous times in the past for similar symptoms with an unremarkable workup I discussed the patient and family all her lab results CT and chest x-ray findings patient is resting comfortably ambulatory to the bathroom. Advised follow-up with her GI doctor this week, return at anytime sooner with any concerns cleared for discharge PATIENT: VANDANA ZABALA PRESENT AGE: 46 PATIENT ACCOUNT NO: [id number] : 68 LOCATION: [facility] ORDERING PHYSICIAN: RAGINI MOLINA SERVICE DATE: 12/16/16 EXAM TYPE: CAT - CT ABD & PELVIS W/O IV CONTRAS EXAMINATION: CT ABDOMEN AND PELVIS WITHOUT CONTRAST CLINICAL INFORMATION: Epigastric pain. COMPARISON: 11/25/2016 TECHNIQUE: Multidetector volumetric imaging was performed from the superior aspect of the liver through the pubic symphysis. Sagittal and coronal reformatted images were obtained on the technologist's workstation. DLP: 457 mGy-cm FINDINGS: LUNG BASES: The visualized lung bases are unremarkable. LIVER, GALLBLADDER, AND BILIARY TREE: The liver is normal in size, shape, and attenuation. No focal hepatic lesion or biliary ductal dilatation is present. The gallbladder is unremarkable with no evidence of radiopaque gallstones, gallbladder wall thickening, or obvious pericholecystic inflammatory changes. PANCREAS: Unremarkable. SPLEEN: Unremarkable. ADRENAL GLANDS: Unremarkable. KIDNEYS AND URETERS: The kidneys are normal in size, shape, and attenuation. No hydronephrosis, hydroureter, or calculi seen. No perinephric stranding. BLADDER: Unremarkable. GASTROINTESTINAL TRACT: Surgical clips are seen adjacent to the gastroesophageal junction. The stomach is normally distended without wall thickening. The small bowel is unremarkable. No dilated loops of bowel or evidence of obstruction. There is a normal appendix. No colonic wall thickening or inflammatory changes. The left hemicolon is decompressed. Mild stool within the right hemicolon. No free air or free fluid. ABDOMINAL WALL: Small fat-containing ventral abdominal wall hernia. The abdominal wall defect measures 0.7 cm. There is diastases of the rectus musculature at the level of the umbilicus with eventration of the abdominal wall. These findings are unchanged. LYMPH NODES: Normal. VASCULAR: Mild to moderate atherosclerotic calcifications are present. PELVIC VISCERA: The uterus and adnexa are unremarkable. OSSEOUS STRUCTURES: No acute or suspicious osseous abnormality. Transitional anatomy at the lumbosacral junction. IMPRESSION: No acute findings of the abdomen or pelvis. No acute inflammatory changes. Redemonstration of small fat-containing abdominal wall ventral hernia. DICTATED BY: TENNILLE CUEVAS,CEZAR DATE/TIME DICTATED:12/16/161925 DATA DELIVERABLES MANAGER:LACHELLE DATE/TIME TRANSCRIBED:12/16/161925 CONFIDENTIAL, DO NOT COPY WITHOUT APPROPRIATE AUTHORIZATION. (RAGINI DUPREE) Diagnostic Imaging: Viewed by Me: CT Scan. Discussed w/RAD: CT Scan. Radiology Impression: PATIENT: VANDANA ZABALA PRESENT AGE: 46 PATIENT ACCOUNT NO: [id number] : 68 LOCATION: [facility] ORDERING PHYSICIAN: RAGINI MOLINA SERVICE DATE: 12/16/16 EXAM TYPE: RAD - XRY-PORTABLE CHEST XRAY EXAMINATION: XR PORTABLE CHEST CLINICAL INFORMATION: Epigastric abdominal pain. COMPARISON: Chest x-ray 11/28/2013 TECHNIQUE: Portable AP portable view of the chest was obtained. 6:29 PM FINDINGS : No significant abnormality is noted involving the heart, lungs, mediastinum, bony thorax or soft tissues. IMPRESSION: Normal chest. DICTATED BY: BHAVANA HE MD DATE/TIME DICTATED:12/16/161841 DATA DELIVERABLES MANAGER:LACHELLE DATE/TIME TRANSCRIBED:12/16/161841 CONFIDENTIAL, DO NOT COPY WITHOUT APPROPRIATE AUTHORIZATION. <Electronically signed in Other Vendor System> SIGNED BY: BHAVANA HE MD 12/16/161846 Initial ED EKG: STACH AT 100, NO ACUTE ST SEG CHANGES, NORMAL AXIS Prior EKG: unchanged (RAGINI DUPREE) Departure Departure Time of Disposition: 1954 Disposition: HOME OR SELF CARE Condition: Stable Clinical Impression Primary Impression: Gastritis Referrals: PATIENT HAS NO PRIMARY CARE DR (PCP/Family) BETH MORALES MD Additional Instructions: Follow-up with your gastroenterology Dr. Morales this week. Your prescriptions were sent to [facility] pharmacy: Phenergan, Bentyl and Levsin Departure Forms: Customer Survey General Discharge Information Prescriptions: Current Visit Scripts Promethazine HCl 1 TAB PO Q6-8 PRN nausea #10 TAB Baclofen 1 TAB PO TID PRN pain #12 TAB Hyoscyamine (Levsin) 1 TAB PO Q4 PRN pain #10 TAB Dicyclomine HCl 1-2 TAB PO BID PRN pain #15 TAB (RAGINI DUPREE) PA/AGRONOMY INSTRUCTOR Co-Sign Statement Statement: ED Attending supervision documentation- [] I saw and evaluated the patient. I have also reviewed all the pertinent lab results and diagnostic results. I agree with the findings and the plan of care as documented in the PA's/AGRONOMY INSTRUCTOR's documentation. [X] I have reviewed the ED Record and agree with the PA's/AGRONOMY INSTRUCTOR's documentation. [] Additions or exceptions (if any) to the PAs/AGRONOMY INSTRUCTOR's note and plan are summarized below: [] (LO SAUCEDA DO)
[2016-12-16 18:19] LABS: ABSOLUTE BASOPHIL COUNT 0 /CUMM (0.0-0.2); ABSOLUTE EOSINOPHIL COUNT 0.3 /CUMM (0.0-0.7); ABSOLUTE GRANULOCYTE CT 4.4 /CUMM (1.4-6.5); ABSOLUTE LYMPH COUNT 3.4 /CUMM (1.2-3.4); ABSOLUTE MONOCYTE COUNT 0.6 /CUMM (0.10-0.60); BASOPHIL % 0.3 % (0.0-2.0); EOSINOPHIL % 3.6 % (0-5); GRANULOCYTE % 50.1 % (42.2-75.2); HEMATOCRIT 39.6 % (37-47); MEAN CORPUSCULAR HGB 32.7 PG (27.0-31.0); MEAN CORPUSCULAR HGB CONC 34.1 G/DL (33.0-37.0); MEAN CORPUSCULAR VOLUME 95.9 FL (81.0-99.0); MEAN PLATELET VOLUME 7.6 FL (7.4-10.4); PLATELET COUNT 322 /CUMM (130-400); RBC DISTRIBUTION WIDTH 15.1 % (11.5-14.5); RED BLOOD CELL CT 4.13 /CUMM (4.20-5.40); WHITE BLOOD CELL COUNT 8.8 /CUMM (4.8-10.8)
--- NOTE | 2016-12-16 18:47 | RADIOLOGY REPORT ---
EXAMINATION: XR PORTABLE CHEST CLINICAL INFORMATION: Epigastric abdominal pain. COMPARISON: Chest x-ray 11/28/2013 TECHNIQUE: Portable AP portable view of the chest was obtained. 6:29 PM FINDINGS: No significant abnormality is noted involving the heart, lungs, mediastinum, bony thorax or soft tissues. IMPRESSION: Normal chest.
--- NOTE | 2016-12-16 19:34 | CT SCAN REPORT ---
EXAMINATION: CT ABDOMEN AND PELVIS WITHOUT CONTRAST CLINICAL INFORMATION: Epigastric pain. COMPARISON: 11/25/2016 TECHNIQUE: Multidetector volumetric imaging was performed from the superior aspect of the liver through the pubic symphysis. Sagittal and coronal reformatted images were obtained on the technologist's workstation. DLP: 457 mGy-cm FINDINGS: LUNG BASES: The visualized lung bases are unremarkable. LIVER, GALLBLADDER, AND BILIARY TREE: The liver is normal in size, shape, and attenuation. No focal hepatic lesion or biliary ductal dilatation is present. The gallbladder is unremarkable with no evidence of radiopaque gallstones, gallbladder wall thickening, or obvious pericholecystic inflammatory changes. PANCREAS: Unremarkable. SPLEEN: Unremarkable. ADRENAL GLANDS: Unremarkable. KIDNEYS AND URETERS: The kidneys are normal in size, shape, and attenuation. No hydronephrosis, hydroureter, or calculi seen. No perinephric stranding. BLADDER: Unremarkable. GASTROINTESTINAL TRACT: Surgical clips are seen adjacent to the gastroesophageal junction. The stomach is normally distended without wall thickening. The small bowel is unremarkable. No dilated loops of bowel or evidence of obstruction. There is a normal appendix. No colonic wall thickening or inflammatory changes. The left hemicolon is decompressed. Mild stool within the right hemicolon. No free air or free fluid. ABDOMINAL WALL: Small fat-containing ventral abdominal wall hernia. The abdominal wall defect measures 0.7 cm. There is diastases of the rectus musculature at the level of the umbilicus with eventration of the abdominal wall. These findings are unchanged. LYMPH NODES: Normal. VASCULAR: Mild to moderate atherosclerotic calcifications are present. PELVIC VISCERA: The uterus and adnexa are unremarkable. OSSEOUS STRUCTURES: No acute or suspicious osseous abnormality. Transitional anatomy at the lumbosacral junction. IMPRESSION: No acute findings of the abdomen or pelvis. No acute inflammatory changes. Redemonstration of small fat-containing abdominal wall ventral hernia.
[2016-12-16] MEDS ORDERED: PROMETHAZINE12.5 M2 PO (19:59)
[2016-12-16] MEDS ORDERED: LEVSIN0.125 M1 PO (19:59)
[2016-12-16] MEDS ORDERED: DICYCLOMINE HCL20 M1 PO (19:59)
[2016-12-16] MEDS ORDERED: BACLOFEN20 M1 PO (19:59)
== END 2016-12-16 20:16 ==
LOC: ERH 17:45
PROVIDERS: Physician Assistant Medical
DX: K29.70 Gastritis, unspecified, without bleeding (principal)
CPT/HCPCS: 74176; 93005; 93010; 96361; 96374; 96375; J2405